=== PATIENT | female | born 1970 | race Caucasian/White ===

== ENCOUNTER 2020-05-26 12:12 | Emergency (ER) | payer BC, SELFPAY ==
[2020-05-26 12:20] VITALS: BP 192/110; PULSE 110; RESP 18; TEMP 36.6; O2SAT 98
--- NOTE | 2020-05-26 12:49 | ED.FEMALEGU ---
HPI - Female Genitourinary General Chief complaint: GLAZIER HELPER Stated complaint: Vaginal Bleeding Time Seen by Provider: 05/26/20 12:49 History of Present Illness HPI Narrative: Heavy vaginal bleeding since yesterday. Seemd better this morning. Then after workout she reports sudden large gush of blood and going through about 1 large tampon per hour. She has never had bleeding this heavy before. She endorses mild light headedness. She has had some abdominal cramping as well, although sounds like it is not new for her. No blood thinners, no other bleeding or bruising. Related Data Home Medications Medication Instructions Recorded Confirmed No Home Medications 05/26/20 05/26/20 Allergies Allergy/AdvReac Type Severity Reaction Status Date / Time aspirin Allergy Other Verified 05/26/20 12:28 Review of Systems Review of Systems: All systems reviewed & are unremarkable except as noted in HPI and below Constitutional: Constitutional: Denies chills Cardiovascular: Cardiovascular: Denies chest pain Respiratory: Respiratory: Denies dyspnea Gastrointestinal: Gastrointestinal: Reports abdominal pain Genitourinary: Genitourinary: Denies hematuria and Denies dysuria Musculoskeletal: Musculoskeletal: Denies back pain [facility] Family History Family History Mother Hypertension Father Family history of coronary artery disease Family history of congestive heart failure, Onset Age: 80 Social History Social History Smoking status: Never smoker Alcohol intake: never Gender identity (if verbalized by the patient): Female Exam Const: General: healthy appearing, no acute distress and alert Orientation/consciousness: patient oriented x3 HENMT: Head: normal to inspection Neck: Neck: normal visual inspection and no lymphadenopathy Chest: Chest palpation & inspection: no tenderness Resp: Effort & Inspection: normal respiratory effort Auscultation: clear to auscultation bilaterally, no rales, no rhonchi and no wheezes Cardio: Jugular venous distension: no JVD Rate: regular rate Rhythm: regular rhythm Heart sounds: no murmurs GI: Inspection: non-distended GI Palp: Yes Soft to palpation and No Tenderness to palpation present (GI) : External Female Exam: normal external appearance Speculum Exam - Vagina: vaginal bleeding (minimal) Speculum Exam - Cervix: normal appearance of the cervix Skin: General skin exam: normal color Neuro: General: patient oriented x3 and moves all extremities Speech: normal speech Extrem: General: no edema Psych: Appearance: well kempt Affect: normal affect Course Vital Signs Vital signs: Vital Signs Temperature 36.6 C 05/26/20 12:20 Pulse Rate 110 H 05/26/20 12:20 Respiratory Rate 18 05/26/20 12:20 Blood Pressure 192/110 H 05/26/20 12:20 Pulse Oximetry 98 05/26/20 12:20 Temperature 36.6 C 05/26/20 12:20 Pulse Rate 103 H 05/26/20 13:27 Respiratory Rate 18 05/26/20 12:20 Blood Pressure 177/91 H 05/26/20 13:27 Pulse Oximetry 98 05/26/20 12:20 MDM - Female Genitourinary MDM Narrative Medical decision making narrative: H/H stable. Minimal bleeding on exam. Case discussed with Dr. Reed. She can follow-up with them in clinic next week. Medical Records Attestation: I reviewed the patient's medical records. Lab Data Attestation: I reviewed the patient's lab results. Result diagrams: 05/26/20 13:26 05/26/20 13:26 Labs: Lab Results 05/26/20 05/26/20 05/26/20 Range/Units 13:26 13:26 13:26 WBC (4.5-10.0) K/mm3 RBC (4.2-5.4) M/mm3 Hgb (12.0-15.0) g/dL Hct (37.0-47.0) % MCV (80-100) fl MCH (26-34) pg MCHC (32-36) g/dl RDW (11.5-14.5) % Plt Count (150-375) k/mm3 MPV (7.4-10.4) fl Immature Gran % (Auto) (0-0.5) % Neut % (Auto) (45.
[2020-05-26 13:27] VITALS: BP 168/107; BP 170/104; BP 177/91; PULSE 103; PULSE 90; PULSE 94
[2020-05-26] MEDS: SODIUM CHLORIDE 0.9% IV 1,000 ML 999 ML IV CONT (13:33)
[2020-05-26 13:41] LABS: Add Urine Microscopic? YES; Appearance Urine Clear (Clear); Bilirubin Urine Negative (Negative); Blood Urine 1+ (Negative); Color Urine Straw (Yellow); Glucose Urine UA Negative (Negative); Ketones Urine Negative (Negative); Leukocyte Esterase Ur Negative LEU/UL (Negative); Mucus Urine Rare /lpf; Nitrate Urine Negative (Negative); Protein Urine Negative (Negative); RBC Urine 0-2 /hpf (0-2); Specific Grav Ur 1.014 (1.001-1.035); Squamous Epithelial Cell Urine Rare /hpf (Few); Urobilinogen Urine Negative mg/dL (<2.0)
[2020-05-26 13:52] LABS: Alanine Aminotransferase 30 U/L (4-35); Albumin Level 3.9 g/dL (3.5-5.1); Alkaline Phosphatase 43 U/L (38-126); Anion Gap 10.5 mmol/L (7-16); Aspartate Amino Transferase 28 U/L (14-36); Bilirubin,Total 0.3 mg/dL (0.2-1.3); Blood Urea Nitrogen 11 mg/dL (7-17); Calcium 8.6 mg/dL (8.4-10.2); Carbon Dioxide 26 mmol/L (22-30); Chloride 105 mmol/L (98-107); Estimated CRCL calculation 103 ml/min; Estimated Glomerular Filt Rate > 60; Glucose 115 mg/dL (65-105); Potassium 3.5 mmol/L (3.4-5.0); Sodium 138 mmol/L (137-145)
[2020-05-26 13:55] LABS: Basophils Absolute Auto 0.1 K/mm3 (0.0-0.1); Basophils Percent Auto 0.7 % (0.2-1.2); Eosinophils Absolute Auto 0.1 K/mm3 (0-0.3); Eosinophils Percent Auto 1.2 % (0-4.4); Hematocrit 34.8 % (37.0-47.0); Hemoglobin 12.5 g/dL (12.0-15.0); Immature Granulocyte Absolute 0.04 K/mm3 (0.00-0.031); Immature Granulocyte Percent A 0.5 % (0-0.5); Lymphocytes Absolute Auto 1.68 K/mm3 (0.9-3.2); Lymphocytes Percent Auto 22.1 % (18.3-44.2); Mean Corpuscular HGB Conc 35.9 g/dl (32-36); Mean Corpuscular Hemoglobin 30.6 pg (26-34); Mean Corpuscular Volume 85.3 fl (80-100); Mean Platelet Volume 8.9 fl (7.4-10.4); Monocytes Absolute Auto 0.7 K/mm3 (0.1-0.6); Monocytes Percent Auto 9.2 % (2.6-8.5); Neutrophils Absolute Auto 5.1 K/mm3 (1.3-6.7); Neutrophils Percent Auto 66.3 % (45.5-73.1); Platelet Count Result 279 k/mm3 (150-375); Red Blood Count 4.08 M/mm3 (4.2-5.4); White Blood Count 7.6 K/mm3 (4.5-10.0)
[2020-05-26 13:57] LABS: INR 1.1; Prothrombin Time 13.9 Seconds (11.1-14.7)
[2020-05-26 13:58] LABS: Partial Thromboplastin Time 25.4 SECONDS (22.3-36.8)
== END 2020-05-26 15:19 | disposition home or self-care (01) ==
PROVIDERS: Emergency Provider Emergency Medicine
DX: N93.9 Abnormal uterine and vaginal bleeding, unspecified (principal)
CPT/HCPCS: 36415; 80053; 81001; 81025; 85025; 85610; 85730; 86850; 86900; 86901; 96360; 99284; J7030

== ENCOUNTER 2020-08-06 02:44 | Outpatient (CLI) | payer BC, SELFPAY ==
[2020-08-06 18:16] LABS: SARS-CoV-2 RNA PCR Negative
== END 2020-08-06 02:45 | disposition home or self-care (01) ==
LOC: ANHCOVIDDT 02:45
PROVIDERS: PCP Family Medicine; Visit Provider Internal Medicine Gastroenterology
DX: Z01.812 Encounter for preprocedural laboratory examination (principal); Z20.828 Contact with and (suspected) exposure to other viral communicable diseases
CPT/HCPCS: 87635; C9803; U0003

== ENCOUNTER 2020-08-08 01:49 | Day surgery (SDC) | payer BC, SELFPAY ==
[2020-08-06 13:40] VITALS: BMI 36.3
[2020-08-08 10:50] VITALS: BP 165/86; PULSE 85; RESP 18; TEMP 37.4; O2SAT 99
[2020-08-08] MEDS: LACTATED RINGERS 1,000 ML 150 ML IV CONT (10:58)
--- NOTE | 2020-08-08 10:59 | WPDANESEPPF ---
Anes - Initial Pre Proc Eval Procedure: Operation Date: 08/08/20 11:30 Proposed Procedures p Esophagogastroduodenoscopy - Mike Gama MD Date/Time: 08/08/20 10:59 Surgeon: Mike Gama MD Pre Op Diagnosis: GERD Patient Data Age: 50 Gender: F Height: 5 ft 6 in Weight: 101.7 kg Last Vital Signs Temp 37.4 C 08/08/20 10:50 Pulse 85 08/08/20 10:50 Resp 18 08/08/20 10:50 BP 165/86 H 08/08/20 10:50 Pulse Ox 99 08/08/20 10:50 Allergies Allergy/AdvReac Type Severity Reaction Status Date / Time aspirin Allergy Mild bleeding Verified 08/08/20 10:48 Home Medications Medication Instructions Recorded Confirmed Type pantoprazole 40 mg PO BID 08/06/20 08/08/20 History Patient hx anesthesia problems: none Family hx anesthesia problems: none PMFSH Past Medical History Medical History GERD (gastroesophageal reflux disease) Family History Family History Mother Hypertension Father Family history of coronary artery disease Family history of congestive heart failure, Onset Age: 80 Social History Social History Smoking status: Never smoker Alcohol intake: current Substance use: never Substance use type: does not use Living arrangements: with family Gender identity (if verbalized by the patient): Female Spiritual care concerns: No Anes - Eval Final PreProcedure Day of Procedure 08/08/20 10:59 Patient weight: obese Heart: regular rate and rhythm Lungs: clear to auscultation Airway: Mallampati scale class II Neurological: alert and oriented Last oral intake: >/= 8 hours ASA classification: II Emergent: no Anesthetic plan: proceed Anesthesia type and monitoring: general GIVS and standard monitoring Informed Consent: The patient's anesthetic plan and its attendant risks and benefits were discussed with the patient/family/POA. Questions were solicited and answers provided to the satisfaction of the patient/family/POA.
--- NOTE | 2020-08-08 11:35 | PM.HPGS ---
History of Present Illness History of Present Illness Consent: Risks, benefits, and alternatives have been discussed and questions answered. Patient agrees to proceed with procedure. Chief complaint: GERD Narrative: Natalee Lopez is a 50 year old female with epigastric pain and heartburn. For 2 years she has had had a constant raw feeling in the epigastric area. She also gets very bloated and distended. She has had acid reflux with burning into her throat but that was relieved when she began taking pantoprazole few months ago. Because of persistent symptoms she was told begin taking the twice a day but still has the constant epigastric burning. She had been using quite a bit of ibuprofen for a neck injury but now takes it only occasionally. She denies dysphagia or weight loss. She does drink through a straw in uses carbonated beverages regularly. Review of Systems Review of Systems: All systems reviewed & are unremarkable except as noted in HPI and below PMFSH Past Medical History Medical History GERD (gastroesophageal reflux disease) Family History Family History Mother Hypertension Father Family history of coronary artery disease Family history of congestive heart failure, Onset Age: 80 Social History Social History Smoking status: Never smoker Alcohol intake: current Substance use: never Substance use type: does not use Living arrangements: with family Gender identity (if verbalized by the patient): Female Spiritual care concerns: No Meds Home Medications and Allergies Home Medications Medication Instructions Recorded Confirmed Type pantoprazole 40 mg PO BID 08/06/20 08/08/20 History Allergies Allergy/AdvReac Type Severity Reaction Status Date / Time aspirin Allergy Mild bleeding Verified 08/08/20 10:48 Vital Signs Vital Signs - 24 hr 08/08/20 10:50 Temperature 37.4 C Pulse Rate 85 Respiratory Rate 18 Blood Pressure 165/86 H Pulse Oximetry 99 Exam Const: General: alert Orientation/consciousness: patient oriented x3 Resp: Auscultation: clear to auscultation bilaterally Cardio: Rhythm: regular rhythm GI: GI Palp: Yes Soft to palpation and No Tenderness to palpation present (GI) Neuro: General: patient oriented x3 Assessment and Plan Assessment and plan (1) Epigastric pain: Code(s): R10.13 - Epigastric pain Status: Acute Assessment and Plan: EGD with possible biopsy or dilatation or cautery.
[2020-08-08] MEDS: BENZOCAINE (*SP) 60 ML SPRAY CAN (HURRICAINE) 1 SPRAY MUCOUS MEM (11:46)
[2020-08-08 12:00] VITALS: BP 147/93; PULSE 98; RESP 25; O2SAT 99
[2020-08-08 12:10] VITALS: BP 159/90; PULSE 82; RESP 16; O2SAT 99
[2020-08-08 12:20] VITALS: BP 154/80; PULSE 78; RESP 17; O2SAT 100
== END 2020-08-08 12:39 | disposition home or self-care (01) ==
PROVIDERS: PCP Family Medicine; Visit Provider Internal Medicine Gastroenterology
PROC: 0DJ08ZZ Inspection of Upper Intestinal Tract, Via Natural or Artificial Opening Endoscopic (ICD-10-PCS; CPT 43235; principal; 2020-08-08 11:30)
DX: K21.00 Gastro-esophageal reflux disease with esophagitis, without bleeding (principal); K29.70 Gastritis, unspecified, without bleeding; K29.50 Unspecified chronic gastritis without bleeding; E66.9 Obesity, unspecified; Z68.36 Body mass index [BMI] 36.0-36.9, adult
CPT/HCPCS: 43239; 88305; 88342; J2001; J2704; J7120

== ENCOUNTER 2021-12-17 01:06 | Emergency (ER) | payer BC, SELFPAY ==
--- NOTE | ~2021-12-17 | CT_ITS ---
EXAMINATION: CT abdomen pelvis w con EXAM DATE: 12/17/2021 03:12 INDICATION: Upper Abd Pain X 10 Hrs. Radiates To Back. N/v. TECHNIQUE: Spiral CT of the abdomen and pelvis was performed following intravenous injection of 100 m L Omnipaque 350. Axial, coronal and sagittal images of the abdomen and pelvis were reviewed. The do se-length product (DLP) for this examination was 1021.17 mGy-cm. The exposure was tailored according to patient size (auto mA exposure control), and iterative reconstruction (ASIR) was used as addition al dose reduction technique. There is no prior study for comparison. FINDINGS: There is hepatic steatosis without suspicious focal lesion identified. Spleen, adrenal glan ds, pancreas are unremarkable. Gallbladder is unremarkable. No biliary obstruction. Portal and spl enic veins are patent. Kidneys enhance symmetrically. There is no hydronephrosis. The uterus is u nremarkable. The bladder is unremarkable. There is no retroperitoneal or pelvic lymphadenopathy. The appendix is normal. The stomach and small bowel are unremarkable. There is expected amount of c olonic stool. No free intraperitoneal gas. The heart is normal in size. There are no pericardial or pleural effusions. The lung bases are unremarkable. The bones are unremarkable. IMPRESSION: 1. Hepatic steatosis. 2. No acute findings. Reviewed, dictated and finalized at location A. ECT DEVELOPMENT ENGINEER
[2021-12-17 01:15] VITALS: BP 132/79; PULSE 100; RESP 18; TEMP 35.9; O2SAT 99
[2021-12-17 02:30] VITALS: BP 112/74; PULSE 106; RESP 20; TEMP 36.1
[2021-12-17 02:31] LABS: Basophils Percent Auto 0.2 % (0.2-1.2); Eosinophils Percent Auto 0.2 % (0-4.4); Hematocrit 39.7 % (37.0-47.0); Hemoglobin 14.1 g/dL (12.0-15.0); Immature Granulocyte Absolute 0.03 K/mm3 (0.00-0.031); Immature Granulocyte Percent A 0.3 % (0-0.5); Lymphocytes Absolute Auto 0.23 K/mm3 (0.9-3.2); Lymphocytes Percent Auto 2.5 % (18.3-44.2); Mean Corpuscular HGB Conc 35.5 g/dl (32-36); Mean Corpuscular Volume 90.2 fl (80-100); Mean Platelet Volume 8.6 fl (7.4-10.4); Monocytes Absolute Auto 0.6 K/mm3 (0.1-0.6); Monocytes Percent Auto 6.2 % (2.6-8.5); Neutrophils Absolute Auto 8.5 K/mm3 (1.3-6.7); Neutrophils Percent Auto 90.6 % (45.5-73.1); Platelet Count Result 222 k/mm3 (150-375); Red Cell Distribution Width 12.1 % (11.5-14.5); White Blood Count 9.3 K/mm3 (4.5-10.0)
--- NOTE | 2021-12-17 02:31 | ECG_ITS ---
Measurements Intervals [place] Rate: 104 P: 32 WA: 140 QRS: -2 QRSD: 86 T: 18 QT: 348 QTc: 459 Interpretive Statements SINUS TACHYCARDIA CONSIDER ANTERIOR INFARCT, AGE INDETERMINATE INFERIOR INFARCT, AGE INDETERMINATE BASELINE ARTIFACT- II, III, AVR, AVF ABNORMAL ECG Electronically Signed On 12-17-2021 6:20:28 VENDING MACHINE MECHANIC by Cj De La Cruz D.O.
--- NOTE | 2021-12-17 02:41 | ED.ABDPAIN ---
HPI - Abdominal Pain General Chief Complaint: Abdominal Pain Stated Complaint: vomiting and abd pain Time Seen by Provider: 12/17/21 02:30 Source: patient Mode of arrival: ambulatory Limitations: no limitations History of Present Illness HPI narrative: Patient is a 51-year-old female complaining of epigastric pain, burning, 8 out of 10, radiating to back accompanied by nausea and vomiting that started this afternoon. Patient denies any chest pain, shortness of breath, diarrhea, fever, chills, or urinary symptoms. Related Data Home Medications Medication Instructions Recorded Confirmed pantoprazole 40 mg PO BID 08/06/20 08/08/20 Allergies Allergy/AdvReac Type Severity Reaction Status Date / Time aspirin Allergy Mild bleeding Verified 12/17/21 04:46 Review of Systems Review of Systems: All systems reviewed & are unremarkable except as noted in HPI and below Constitutional: Constitutional: Denies body ache(s), Denies chills, Denies excessive sweating, Denies fatigue, Denies fever(s), Denies headache(s), Denies lethargy, Denies malaise, Denies weakness and Denies weight loss Eyes: Eyes: Denies blurry vision, Denies change in vision and Denies loss of vision ENT: Denies dizziness, Denies ear discharge, Denies headache(s), Denies lip swelling, Denies epistaxis, Denies nasal congestion, Denies neck pain, Denies throat swelling and Denies tongue swelling Cardiovascular: Cardiovascular: Denies chest pain, Denies chest pain at rest, Denies chest pain with activity, Denies diaphoresis, Denies rapid heart rate, Denies edema, Denies irregular heart rhythm, Denies lightheadedness, Denies palpitations, Denies dyspnea and Denies dyspnea on exertion Respiratory: Respiratory: Denies chest congestion, Denies cough, Denies hemoptysis, Denies dyspnea and Denies dyspnea on exertion Gastrointestinal: Gastrointestinal: Denies melena, Denies hematochezia and Denies hematemesis Musculoskeletal: Musculoskeletal: Denies abnormal gait, Denies deformity, Denies joint swelling, Denies limited range of motion, Denies neck pain and Denies numbness Neurologic: Denies Abnormal speech present, Denies abnormal gait, Denies confusion, Denies dizziness, Denies headache(s), Denies focal weakness, Denies loss of vision, Denies numbness, Denies Other visual disturbances, Denies Sensory deficit (Neuro) and Denies weakness Psychiatric: Psychiatric: Denies confusion, Denies depression, Denies auditory hallucinations, Denies homicidal ideation and Denies suicidal ideation Endocrine: Endocrine: Denies cold intolerance, Denies excessive sweating, Denies fatigue, Denies heat intolerance and Denies palpitations Hematologic/Lymphatic: Hematologic/Lymphatic: Denies easy bleeding and Denies easy bruising Allergic/Immunologic: Allergic/Immunologic: Denies lip swelling, Denies throat swelling and Denies tongue swelling PMFSH Past Medical History Medical History GERD (gastroesophageal reflux disease) Family History Family History Mother Hypertension Father Family history of coronary artery disease Family history of congestive heart failure, Onset Age: 80 Social History Social History Smoking status: Never smoker Alcohol intake: current Substance use: never Substance use type: does not use Gender identity (if verbalized by the patient): Female Spiritual care concerns: No Exam Const: General: cooperative, healthy appearing, comfortable, no acute distress, well developed, alert and awake; No confusion Orientation/consciousness: oriented to person, oriented to place, oriented to time, patient oriented x3 and No confusion Limitations: no limitations HENMT: Head: normal to inspection, normocephalic and atraumatic Ears: hearing grossly normal bilaterally, TM normal on the righ
[2021-12-17 02:42] LABS: Alanine Aminotransferase 345 U/L (4-35); Albumin Level 4.4 g/dL (3.5-5.1); Alkaline Phosphatase 54 U/L (38-126); Anion Gap 11 mmol/L (8-16); Aspartate Amino Transferase 474 U/L (14-36); Bilirubin,Total 2.2 mg/dL (0.2-1.3); Blood Urea Nitrogen 17 mg/dL (7-17); Carbon Dioxide 25 mmol/L (22-30); Chloride 102 mmol/L (98-107); Estimated CRCL calculation 87 ml/min; Estimated Glomerular Filt Rate > 60; Glucose 144 mg/dL (65-110); Lipase 61 U/L (23-300); Potassium 3.6 mmol/L (3.4-5.0); Sodium 138 mmol/L (137-145)
[2021-12-17] MEDS: PANTOPRAZOLE SODIUM IV 40 MG VIAL IV PUSH (02:50)
[2021-12-17] MEDS: ONDANSETRON INJ 4 MG/2 ML VIAL IV PUSH (02:51)
[2021-12-17] MEDS: MORPHINE SULFATE (*CRX) 2 MG/ML INJ IV PUSH ×2 (02:51→05:16)
[2021-12-17 03:18] LABS: INR 1.1; Prothrombin Time 13.4 Seconds (11.1-14.7)
[2021-12-17 03:19] LABS: Partial Thromboplastin Time 23.5 SECONDS (22.3-36.8)
[2021-12-17 03:55] LABS: Add Urine Microscopic? NO; Appearance Urine Clear (Clear); Bilirubin Urine Negative (Negative); Blood Urine Negative (Negative); Color Urine Yellow (Yellow); Glucose Urine UA Negative (Negative); Ketones Urine Negative (Negative); Leukocyte Esterase Ur Negative LEU/UL (Negative); Mucus Urine Few /lpf; Nitrate Urine Negative (Negative); Protein Urine Negative (Negative); Squamous Epithelial Cell Urine Many /hpf (Few); Urobilinogen Urine Negative mg/dL (<2.0)
[2021-12-17 04:10] LABS: Troponin I < 0.012 ng/mL (0.000-0.034)
[2021-12-17 04:13] VITALS: BP 136/83; PULSE 102; RESP 18; O2SAT 97
[2021-12-17 05:15] VITALS: BP 98/72; PULSE 106; RESP 18; O2SAT 100
[2021-12-17] MEDS: LACTATED RINGERS 1,000 ML 999 ML IV CONT (05:37)
[2021-12-17 06:45] LABS: Reflex Lactic Acid Yes or No Add Lactic
[2021-12-17 06:51] VITALS: BP 119/71; PULSE 88; RESP 18; O2SAT 98
== END 2021-12-17 07:03 | disposition home or self-care (01) ==
PROVIDERS: Emergency Provider Emergency Medicine; PCP Family Medicine
DX: K29.00 Acute gastritis without bleeding (principal); R00.0 Tachycardia, unspecified; R94.31 Abnormal electrocardiogram [ECG] [EKG]
CPT/HCPCS: 36415; 74177; 80053; 81003; 81025; 83605; 83690; 84484; 85025; 85610; 85730; 93005; 96361; 96374; 96375; 96376; 99284; C9113; J2270; J2405; J7120; Q9967

== ENCOUNTER 2022-10-27 15:49 | Emergency (ER) | payer BC, SELFPAY ==
[2022-10-27] VITALS (12 sets, daily range): BP systolic 136–148; BP diastolic 72–89; PULSE 94–110; RESP 16–20; TEMP 36.7–36.8; O2SAT 96–100
--- NOTE | ~2022-10-27 | CT_ITS ---
EXAMINATION: CT abdomen pelvis w con DATE: 10/27/2022 20:50 INDICATION: abd pain TECHNIQUE: Computed tomography (CT) of the abdomen and pelvis was performed with 100 mL Omnipaque-350 intravenous contrast. Automated exposure control and iterative reconstruction technique were employe d. The dose-length product was 1153.24 mGy-cm. COMPARISON: 12/17/2021. FINDINGS: Lower thorax: Unremarkable Liver: Hepatomegaly. Diffuse fatty deposition. Biliary/Gallbladder: Gallbladder is normal. No bile duct dilation. Pancreas: No mass or duct dilation. Spleen: Normal. Adrenals:No mass. Kidneys: No mass, stone, or hydronephrosis. GI tract: Distal esophageal and gastric wall edema. No small or large bowel dilation. Normal appendix . Mesentery/Peritoneum: No ascites, mass, or free air. Retroperitoneum: No mass. Pelvis: Pelvic organs are within normal limits. Soft Tissues: Soft tissues and body wall unremarkable. Bones: No acute osseous finding. IMPRESSION: No acute abdominopelvic process detected. Hepatomegaly and steatosis. Reviewed, dictated and finalized at location K. LLOFACIAL PATHOLOGY
--- NOTE | 2022-10-27 16:15 | ECG_ITS ---
Measurements Intervals [place] Rate: 109 P: 9 GA: 136 QRS: -24 QRSD: 85 T: 10 QT: 338 QTc: 457 Interpretive Statements SINUS TACHYCARDIA CONSIDER ANTERIOR INFARCT, AGE INDETERMINATE CONSIDER INFERIOR INFARCT, AGE INDETERMINATE ABNORMAL ECG COMPARED TO ECG 12/17/2021 02:40:37 NO SIGNIFICANT CHANGES Electronically Signed On 10-27-2022 18:38:19 PROBATION AND PAROLE OFFICER by Cj De La Cruz D.O.
[2022-10-27 16:59] LABS: Basophils Percent Auto 0.3 % (0.2-1.2); Eosinophils Absolute Auto 0.1 K/mm3 (0-0.3); Eosinophils Percent Auto 0.8 % (0-4.4); Hematocrit 38.1 % (37.0-47.0); Immature Granulocyte Absolute 0.02 K/mm3 (0.00-0.031); Immature Granulocyte Percent A 0.3 % (0-0.5); Lymphocytes Absolute Auto 0.44 K/mm3 (0.9-3.2); Lymphocytes Percent Auto 6.2 % (18.3-44.2); Mean Corpuscular HGB Conc 34.1 g/dl (32-36); Mean Corpuscular Hemoglobin 30.8 pg (26-34); Mean Corpuscular Volume 90.3 fl (80-100); Mean Platelet Volume 8.6 fl (7.4-10.4); Monocytes Absolute Auto 0.5 K/mm3 (0.1-0.6); Monocytes Percent Auto 6.7 % (2.6-8.5); Neutrophils Absolute Auto 6.1 K/mm3 (1.3-6.7); Neutrophils Percent Auto 85.7 % (45.5-73.1); Platelet Count Result 211 k/mm3 (150-375); Red Blood Count 4.22 M/mm3 (4.2-5.4); Red Cell Distribution Width 12.3 % (11.5-14.5); White Blood Count 7.1 K/mm3 (4.5-10.0)
[2022-10-27 17:17] LABS: Alanine Aminotransferase 151 U/L (6-35); Albumin Level 4.6 g/dL (3.5-5.1); Alkaline Phosphatase 37 U/L (38-126); Anion Gap 10 mmol/L (8-16); Aspartate Amino Transferase 126 U/L (14-36); Bilirubin,Total 1.2 mg/dL (0.2-1.3); Blood Urea Nitrogen 14 mg/dL (7-17); Calcium 8.5 mg/dL (8.4-10.2); Carbon Dioxide 28 mmol/L (22-30); Chloride 100 mmol/L (98-107); Estimated CRCL calculation 99 ml/min; Estimated Glomerular Filt Rate > 60; Glucose 115 mg/dL (65-110); Lipase 67 U/L (23-300); Potassium 4.1 mmol/L (3.4-5.0); Sodium 138 mmol/L (137-145)
[2022-10-27 18:37] LABS: Add Urine Microscopic? YES; Appearance Urine Clear (Clear); Bilirubin Urine Negative (Negative); Blood Urine Negative (Negative); Color Urine Yellow (Yellow); Glucose Urine UA Negative (Negative); Ketones Urine Negative (Negative); Leukocyte Esterase Ur Trace LEU/UL (Negative); Nitrate Urine Negative (Negative); Protein Urine Negative (Negative); Urobilinogen Urine 0.2 mg/dL (<2.0); pH Urine 6.5 (5.0-9.0)
[2022-10-27 18:43] LABS: Mucus Urine Rare /lpf; Squamous Epithelial Cell Urine Rare /hpf (Few); WBC Urine 0-3 /hpf
--- NOTE | 2022-10-27 20:14 | ED.ABDPAIN ---
HPI - Abdominal Pain General Chief Complaint: Abdominal Pain Stated Complaint: abd pain Time Seen by Provider: 10/27/22 20:10 Source: RN notes reviewed History of Present Illness HPI narrative: Patient presents f to emergency department from home for abdominal pain. Patient states symptoms began at approximately 530 this morning. The pain is located across the upper abdomen described as sharp and stabbing in nature. States the pain does not radiate. She denies any fevers or chills she denies any chest pain or shortness of breath denies any nausea vomiting diarrhea or any other symptoms states she has not taken anything for the symptoms Related Data Home Medications Medication Instructions Recorded Confirmed pantoprazole 40 mg tablet,delayed 40 mg PO BID 08/06/20 02/03/22 release dicyclomine 20 mg tablet 20 mg PO .prn 02/03/22 02/03/22 Allergies Allergy/AdvReac Type Severity Reaction Status Date / Time No Known Allergies Allergy Unverified 10/27/22 21:28 Review of Systems Review of Systems: Gen.: Denies fevers or chills ENT: Denies congestion Respiratory: Denies shortness of breath or cough CV: Denies chest pain or palpitations GI: See HPI denies burning, urgency, frequency or hematuria Musculoskeletal: Denies back pain or muscle pain Neuro: Denies numbness, tingling, weakness or focal weakness Skin: Denies rash Except as documented, all other systems reviewed and negative [facility] Past Medical History Medical History Abdominal bloating Elevated liver enzymes GERD (gastroesophageal reflux disease) Hepatic steatosis Surgical History Surgical History (Updated 02/03/22 @ 11:21 by Marlene Yu MA) H/O abdominoplasty H/O esophagogastroduodenoscopy History of cholecystectomy Family History Family History Mother Hypertension Father Family history of coronary artery disease Family history of congestive heart failure, Onset Age: 80 Social History Social History Smoking status: Never smoker Alcohol intake: current Substance use: never Substance use type: does not use Gender identity (if verbalized by the patient): Female Spiritual care concerns: No Exam Narrative: APPEARANCE: No acute distress, nontoxic, resting in bed HEENT: Normocephalic, atraumatic, OMM RESPIRATORY: No respiratory distress, clear to auscultation bilaterally with no rhonchi wheezing or rales CARDIOVASCULAR: RRR s murmur ABDOMINAL: Soft nondistended tender palpation epigastric, right upper quadrant and left upper quadrant no tenderness in right lower quadrant and left lower quad no rebound or guarding MUSCULOSKELETAl: Moves all extremities. No clubbing, cyanosis or edema. NEURO: Awake and alert. Following commands, speech normal, no focal deficits SKIN:: Warm, dry. Normal Color PSYCHIATRIC: Normal affect/mood Course Course Emergency Course: Discussed with patient states that she does have a history of seen GI before in the past states that she had had a EGD in 2018 which showed some gastritis and she was placed on PPI at that time and she is taking. States she has not seen GI since that time Patient states abdominal pain is improved with GI cocktail Patient states that they are feeling much better at this time. States abdominal pain has improved. Repeat abdominal exam shows the patient's abdomen to be soft with no surgical abdomen present discussed with patient results of workup and diagnosis. Discussed need for follow-up with primary care physician, reasons to return to the emergency department in proper use of medication. Patient understands and agrees to current treatment plan Vital Signs Vital signs: Vital Signs Temperature 98.2 F 10/27/22 16:11 Pulse Rate 103 H 10/27/22 16:11 Respiratory Rate 16 10/27/22 16:11 Bl
[2022-10-27] MEDS: FAMOTIDINE 20 MG/2 ML VIAL IV PUSH (20:25)
[2022-10-27] MEDS: SODIUM CHLORIDE 0.9% IV 1,000 ML 999 ML IV CONT (20:26)
== END 2022-10-27 22:20 | disposition home or self-care (01) ==
PROVIDERS: Emergency Medicine; Emergency Provider Emergency Medicine; PCP Family Medicine
DX: R10.13 Epigastric pain (principal); K21.9 Gastro-esophageal reflux disease without esophagitis; K76.0 Fatty (change of) liver, not elsewhere classified
CPT/HCPCS: 36415; 74177; 80053; 81001; 81025; 83690; 85025; 93005; 96361; 96365; 96375; 99284; A9270; J0131; J7030; Q9967

== ENCOUNTER 2022-10-27 22:44 | Inpatient (IN) | payer BC, SELFPAY ==
--- NOTE | ~2022-10-27 | XR_ITS ---
XR ERCP 10/30/2022 14:13 Gallstones. TECHNIQUE: Fluoroscopy used during ERCP performed by [Mike Gama MD] on 10/30/2022. 77 se conds of fluoroscopy with 3 images captured. ] FINDINGS: Correlate with procedure note. IMPRESSION: Fluoroscopy used during ERCP. Please correlate with procedural report. Reviewed, dictated and finalized at location A. WRITER IMPRESSION: Fluoroscopy used during ERCP. Please correlate with procedural repo rt.
--- NOTE | ~2022-10-27 | MR_ITS ---
EXAMINATION: MR MRCP wo/w con/w 3D wo ind DATE: 10/29/2022 13:02 INDICATION: Choledocholithiasis. TECHNIQUE: Magnetic resonance imaging (MRI) of the abdomen was performed without and with 20 mL Multi Teresa intravenous contrast. Sequences included coronal T2-weighted FS FSE, coronal T2-weighted FSE, a xial T1-weighted LAVA, coronal FS FIESTA, axial dual-echo T1-weighted SPGR, coronal lava-FLEX, sagitt al T2-weighted FSE, axial T2-weighted FSE, and axial DWI. Thick-slab T2-weighted FSE images were obta ined for magnetic resonance cholangiopancreatography (MRCP). Maximum intensity projection 3-D reconst ructions of the volumetric data were created by the technologist. Postcontrast sequences included cor onal LAVA-flex and time course of axial T1-weighted LAVA. COMPARISON: CT abdomen and pelvis 10/27/22 FINDINGS: ABDOMEN MRI: There is diffuse hepatic steatosis. There is mild intrahepatic biliary duct dilatation. The spleen, pancreas, adrenal glands, and kidneys are normal. There are no pathologically enlarged ly mph nodes. There is no free intraperitoneal fluid. There are no dilated loops of bowel. ABDOMEN MRCP: The common hepatic duct measures 13 mm . The common bile duct measures 10 mm with dannielle l distal tapering. No choledocholithiasis. IMPRESSION: 1. Mild intrahepatic and extrahepatic biliary duct dilatation, likely secondary to cholecystectomy. N o choledocholithiasis. Reviewed, dictated and finalized at location A. GER OF INTERNAL AUDIT IMPRESSION: 1. Mild intrahepatic and extrahepatic biliary duct dilatation, likely secondary to cholecystectomy. No choledocholithiasis.
--- NOTE | ~2022-10-27 | US_ITS ---
Limited Abdominal Sonogram: Real-time sonographic imaging of the right upper quadrant was performed. Clinical History: Abdominal pain, abnormal LFTs Findings: The liver appears echogenic, with no evidence of mass lesion or bile duct dilatation. Live r measures 20.1 cm in length. Main portal vein demonstrates normal direction of flow. The gallbladder is absent, compatible prior cholecystectomy. The common bile duct measures 14 mm. The visualized pa ncreas, aorta, and IVC are unremarkable. Impression: Diffuse fatty infiltration of the liver with associated hepatomegaly. Dilated common bile duct, possibly related to prior cholecystectomy. Reviewed, dictated and finalized at location M. ORATE QUALITY MANAGER Impression: Diffuse fatty infiltration of the liver with associated hepatomegaly. Dilated common bile duct, possibly related to prior cholecystectomy.
[2022-10-27 22:45] VITALS: BP 146/86; PULSE 99; RESP 16; TEMP 36.6; O2SAT 98
[2022-10-28 04:15] LABS: Basophils Percent Auto 0.4 % (0.2-1.2); Eosinophils Absolute Auto 0.1 K/mm3 (0-0.3); Eosinophils Percent Auto 1.4 % (0-4.4); Hematocrit 35.3 % (37.0-47.0); Hemoglobin 12.3 g/dL (12.0-15.0); Immature Granulocyte Absolute 0.02 K/mm3 (0.00-0.031); Immature Granulocyte Percent A 0.4 % (0-0.5); Lymphocytes Absolute Auto 0.81 K/mm3 (0.9-3.2); Lymphocytes Percent Auto 15.9 % (18.3-44.2); Mean Corpuscular HGB Conc 34.8 g/dl (32-36); Mean Corpuscular Hemoglobin 31.4 pg (26-34); Mean Corpuscular Volume 90.1 fl (80-100); Mean Platelet Volume 8.7 fl (7.4-10.4); Monocytes Absolute Auto 0.5 K/mm3 (0.1-0.6); Monocytes Percent Auto 10.4 % (2.6-8.5); Neutrophils Absolute Auto 3.6 K/mm3 (1.3-6.7); Neutrophils Percent Auto 71.5 % (45.5-73.1); Platelet Count Result 186 k/mm3 (150-375); Red Blood Count 3.92 M/mm3 (4.2-5.4); Red Cell Distribution Width 12.3 % (11.5-14.5); White Blood Count 5.1 K/mm3 (4.5-10.0)
--- NOTE | 2022-10-28 04:18 | ED.GENADULT ---
HPI - General Adult General Chief complaint: Abdominal Pain Stated complaint: abdominal pain Time Seen by Provider: 10/28/22 02:59 Source: RN notes reviewed History of Present Illness HPI narrative: Who presents emergency department from home for abdominal pain. Patient states abdominal pain is across the upper abdomen is described as sharp and stabbing in nature does not radiate denies any pain in the lower abdomen states it does make her feel mildly short of breath she denies any fevers or chills or chest pain. The patient was seen here earlier today by myself she had a CT scan lab results at that time were normal she given a GI cocktail with improvement and had been discharged she states that she got out of her car began to leave when the pain had returned and then she returned back to the emergency department to check her self back in Related Data Home Medications Medication Instructions Recorded Confirmed pantoprazole 40 mg tablet,delayed 40 mg PO BID 08/06/20 02/03/22 release dicyclomine 20 mg tablet 20 mg PO .prn 02/03/22 02/03/22 Allergies Allergy/AdvReac Type Severity Reaction Status Date / Time No Known Allergies Allergy Verified 10/27/22 22:48 Review of Systems Review of Systems: Gen.: Denies fevers or chills ENT: Denies congestion Respiratory: Reports mild shortness CV: Denies chest pain or palpitations GI: See HPI Musculoskeletal: Denies back pain or muscle pain Neuro: Denies numbness, tingling, weakness or focal weakness Skin: Denies rash Except as documented, all other systems reviewed and negative PMFSH Past Medical History Medical History Abdominal bloating Elevated liver enzymes GERD (gastroesophageal reflux disease) Hepatic steatosis Surgical History Surgical History (Updated 02/03/22 @ 11:21 by Marlene Yu MA) H/O abdominoplasty H/O esophagogastroduodenoscopy History of cholecystectomy Family History Family History Mother Hypertension Father Family history of coronary artery disease Family history of congestive heart failure, Onset Age: 80 Social History Social History Smoking status: Never smoker Alcohol intake: current Substance use: never Substance use type: does not use Gender identity (if verbalized by the patient): Female Spiritual care concerns: No Exam Narrative: APPEARANCE: No acute distress, nontoxic, resting in bed HEENT: Normocephalic, atraumatic, OMM RESPIRATORY: No respiratory distress, clear to auscultation bilaterally with no rhonchi wheezing or rales CARDIOVASCULAR: RRR s murmur ABDOMINAL: Soft nondistended tender palpation epigastric and right upper quadrant left upper quadrant no tenderness in right lower quadrant left lower quadrant no rebound or guarding MUSCULOSKELETAl: Moves all extremities. No clubbing, cyanosis or edema. NEURO: Awake and alert. Following commands, speech normal, no focal deficits SKIN:: Warm, dry. Normal Color PSYCHIATRIC: Normal affect/mood Course Course Emergency Course: Patient was seen by myself I did review the CT and lab results Patient given morphine with some improvement of pain now pain is returning will admit for intractable pain at this time Discussed with Dr. Orosco presentation work-up agrees with admission agrees with plan for GI consult in a.m. Discussed with patient and family results of workup and diagnosis. Discussed need for admission. Patient and family understand and agree to current treatment plan Vital Signs Vital signs: Vital Signs Temperature 97.9 F 10/27/22 22:45 Pulse Rate 99 10/27/22 22:45 Respiratory Rate 16 10/27/22 22:45 Blood Pressure 146/86 H 10/27/22 22:45 Pulse Oximetry 98 10/27/22 22:45 Oxygen Delivery Room Air 10/27/22 22:45 Temperature 97.9 F 10/27/22 22:45
[2022-10-28 04:24] LABS: Alanine Aminotransferase 132 U/L (6-35); Albumin Level 4.3 g/dL (3.5-5.1); Alkaline Phosphatase 41 U/L (38-126); Anion Gap 7 mmol/L (8-16); Aspartate Amino Transferase 97 U/L (14-36); Blood Urea Nitrogen 13 mg/dL (7-17); Calcium 7.9 mg/dL (8.4-10.2); Carbon Dioxide 28 mmol/L (22-30); Chloride 100 mmol/L (98-107); Estimated CRCL calculation 87 ml/min; Estimated Glomerular Filt Rate > 60; Glucose 106 mg/dL (65-110); Lipase 36 U/L (23-300); Potassium 3.2 mmol/L (3.4-5.0); Sodium 135 mmol/L (137-145)
[2022-10-28] MEDS: MORPHINE SULFATE (*CRX) 4 MG/ML INJ IV PUSH ×5 (04:51→21:27)
[2022-10-28 05:09] LABS: Troponin I < 0.012 ng/mL (0.000-0.034)
[2022-10-28] MEDS: POTASSIUM CHLORIDE 20 MEQ TABLET PO (06:17)
[2022-10-28] MEDS: SODIUM CHLORIDE 0.9% IV 1,000 ML 125 ML IV CONT ×3 (06:36→21:30)
[2022-10-28] MEDS: MORPHINE SULFATE (*CRX) 2 MG/ML INJ IV PUSH (06:57)
[2022-10-28 06:59] LABS: Influenza A QL RT-PCR Negative (Negative); Influenza B QL RT-PCR Negative (Negative); SARS-CoV-2 RNA PCR Negative
[2022-10-28 07:21] VITALS: BP 155/86; PULSE 85; RESP 12; O2SAT 95
[2022-10-28] MEDS: PANTOPRAZOLE SODIUM IV 40 MG VIAL IV PUSH (08:24)
[2022-10-28 09:05] VITALS: BP 139/87; PULSE 86; RESP 12; O2SAT 97
--- NOTE | 2022-10-28 09:45 | PC.NURSE ---
This patient, Natalee Lopez, was admitted to [facility] Surg Room 314-01. Patient/family oriented to hospital policies and general routines including ID bracelet, bed and alarms, visiting hours, pain management, procedures, bathroom and other care routines, personal items, smoking policy, room service/diet, and visiting hours. Information on how to activate the Rapid Response Team has been discussed. Patient/Family are encouraged to report perceived risks to care and to ask questions if they do not understand what they are told or what they should do.
[2022-10-28 09:52] VITALS: BMI 38.2
[2022-10-28 10:00] VITALS: BP 135/75; PULSE 82; RESP 16; TEMP 36.4; O2SAT 94
--- NOTE | 2022-10-28 10:37 | PM.IMHP ---
H&P: HPI History of Present Illness Date/Time: 10/28/22 10:37 Chief Complaint: 52-year-old female with past medical history significant for GERD, hepatic steatosis and cholecystectomy is presenting with abdominal pain that is sharp and stabbing in nature in her epigastric area. She denies fevers or chills. No nausea, vomiting or diarrhea. No chest pain or shortness of breath. No sick contacts or recent travel. In the ER, she was found to have elevated LFTs with a negative hepatitis panel. She was flu and COVID negative. CT scan was ordered and was essentially normal other than showing hepatic steatosis. A GI cocktail was given and seems to resolve her symptoms. She was discharged from the ER when she got to the parking lot her abdominal pain recurred. At that time, she was admitted and made NPO, IV fluids, ppi with a GI consult. Patient states she has had abdominal pain for a couple years. She has been seen by GI on outpatient basis where several years ago she had an NSAID induced ulceration was placed on Protonix. She states ever since then, all of her heartburn symptoms have been resolved. She also has discontinued NSAID use. She does have heavy alcohol use with more than 10 drinks per week. She tends to do shots with dinner several nights a week. She did have an endometrial ablation in 2019 before [facility], prior to that she had had severe abdominal pain and menorrhagia. She also had a tummy tuck in 2017. Since then, she states she has had intermittent upper abdominal pain. It is not associated with nausea or emesis. It does not seem to be associated with food intake or positional changes. Review of Systems Review of Systems: 12 point review of systems was assessed and was negative except as noted in the HPI [facility] Past Medical History Medical History Abdominal bloating Constipation by delayed colonic transit Elevated liver enzymes GERD (gastroesophageal reflux disease) Hepatic steatosis Hypertension Surgical History Surgical History H/O abdominoplasty H/O esophagogastroduodenoscopy History of cholecystectomy Family History Family History Mother Hypertension Diabetes mellitus Father Family history of coronary artery disease Family history of congestive heart failure, Onset Age: 80 Diabetes mellitus Grandparent Colon cancer Social History Social History Smoking status: Never smoker Alcohol intake: current Drinks per week: 4 Substance use: never Substance use type: does not use Lack of Transportation: No Lack of Food: Never True Current Housing: I Have Housing Concerned About Future Housing: No Difficulty Paying Gas/Electric Bills: No Difficulty Paying for Meds: No Currently Unemployed: No Education: Associate Degree Difficulty w/ Childcare or Family Care: No Gender identity (if verbalized by the patient): Female Spiritual care concerns: No Meds Home Medications and Allergies Home Medications Medication Instructions Recorded Confirmed Type pantoprazole 40 mg tablet,delayed 40 mg PO DAILY 08/06/20 10/28/22 History release ferrous sulfate 325 mg (65 mg 325 mg PO DAILY 10/28/22 10/28/22 History iron) tablet losartan 100 1 tablet PO DAILY 10/28/22 10/28/22 History mg-hydrochlorothiazide 25 mg tablet Allergies Allergy/AdvReac Type Severity Reaction Status Date / Time No Known Allergies Allergy Verified 10/28/22 10:15 Vital Signs Vital Signs - 24 hr 10/27/22 22:45 10/28/22 07:21 10/28/22 09:05 Temperature 97.9 F Pulse Rate 99 85 86 Respiratory Rate 16 12 12 Blood Pressure 146/86 H 155/86 H 139/87 Pulse Oximetry 98 95 97 Oxygen Delivery Room Air 10/28/22 10:00 Temperature 97.5 F L Pulse Rate 82 Respir
--- NOTE | 2022-10-28 12:29 | WPDGICN ---
Assessment and Plan Assessment and plan (1) Intractable abdominal pain: Code(s): R10.9 - Unspecified abdominal pain Status: Acute Assessment and Plan: Her symptoms suggest biliary colic. The liver enzyme elevation is supportive of that. Lipase however is normal as is the bilirubin. Ultrasound has been scheduled for today. We may want to consider MRCP (2) Hepatic steatosis: Code(s): K76.0 - Fatty (change of) liver, not elsewhere classified Status: Acute Assessment and Plan: Although hepatic steatosis with explain some liver enzyme elevation that would not explain her pain. (3) Elevated liver enzymes: Code(s): R74.8 - Abnormal levels of other serum enzymes Status: Acute Assessment and Plan: Her ALT was actually over 300 in November of this year when she was also having pain. This again suggest possible biliary sludge, choledocholithiasis. (4) Gastritis: Code(s): K29.70 - Gastritis, unspecified, without bleeding Status: Acute Assessment and Plan: EGD about 2 years ago revealed very mild gastritis with negative H pylori. She has been chronically on pantoprazole, therefore the likelihood of peptic ulcer disease is quite low. GI Consult Note Consult date/time: 10/28/22 12:29 HPI: Natalee Lopez is a 52 year old female who was admitted with severe epigastric pain. She states that she came to the emergency room yesterday her pain that seemed to begin in the epigastric area and radiate around both left and right side along the costal margins. She has had this on off for a couple of years. She was in the office 5 months ago and was set up for testing for celiac disease and hepatitis serology due to elevation of liver enzymes. She had been found to have a fatty liver on previous studies. She had a gallbladder removed about 15 years ago. This pain she states does resemble the gallbladder attack pain that she had. It makes her nauseated but she has not been vomiting. In fact she states she is hungry at this time. She has not had a fever. She denies weight loss. AST and ALT are 97 and 132 respectively today down from yesterday. Bilirubin is normal. Her white blood count is normal Review of Systems Review of Systems: All systems reviewed & are unremarkable except as noted in HPI and below PMFSH Past Medical History Medical History Abdominal bloating Constipation by delayed colonic transit Elevated liver enzymes GERD (gastroesophageal reflux disease) Hepatic steatosis Hypertension Surgical History Surgical History H/O abdominoplasty H/O esophagogastroduodenoscopy History of cholecystectomy Family History Family History Mother Hypertension Diabetes mellitus Father Family history of coronary artery disease Family history of congestive heart failure, Onset Age: 80 Diabetes mellitus Grandparent Colon cancer Social History Social History Smoking status: Never smoker Alcohol intake: current Drinks per week: 4 Substance use: never Substance use type: does not use Lack of Transportation: No Lack of Food: Never True Current Housing: I Have Housing Concerned About Future Housing: No Difficulty Paying Gas/Electric Bills: No Difficulty Paying for Meds: No Currently Unemployed: No Education: Associate Degree Difficulty w/ Childcare or Family Care: No Gender identity (if verbalized by the patient): Female Spiritual care concerns: No Meds Home Medications and Allergies Home Medications Medication Instructions Recorded Confirmed Type pantoprazole 40 mg tablet,delayed 40 mg PO DAILY 08/06/20 10/28/22 History release ferrous sulfate 325 mg (65 mg 325 mg PO DAILY 10/28/22 10/28/22 H
[2022-10-28 14:00] VITALS: BP 129/69; PULSE 86; RESP 16; TEMP 36.9; O2SAT 95
[2022-10-28] MEDS: POTASSIUM CHLORIDE 20 MEQ TABLET 40 MEQ PO (17:24)
[2022-10-28 22:00] VITALS: BP 148/87; PULSE 77; RESP 18; TEMP 36.6; O2SAT 95
[2022-10-28 23:28] VITALS: O2SAT 95
[2022-10-29] MEDS: LEVOTHYROXINE SODIUM 50 MCG TABLET PO (05:10)
[2022-10-29] MEDS: MORPHINE SULFATE (*CRX) 4 MG/ML INJ IV PUSH ×3 (05:10→20:19)
[2022-10-29] MEDS: SODIUM CHLORIDE 0.9% IV 1,000 ML 125 ML IV CONT ×2 (05:52→20:19)
[2022-10-29 06:00] VITALS: BP 137/83; PULSE 81; RESP 18; TEMP 36.6; O2SAT 90
[2022-10-29 06:39] LABS: Basophils Percent Auto 0.5 % (0.2-1.2); Eosinophils Absolute Auto 0.1 K/mm3 (0-0.3); Eosinophils Percent Auto 2.5 % (0-4.4); Hematocrit 33.7 % (37.0-47.0); Hemoglobin 11.3 g/dL (12.0-15.0); Immature Granulocyte Absolute 0.02 K/mm3 (0.00-0.031); Immature Granulocyte Percent A 0.5 % (0-0.5); Lymphocytes Absolute Auto 0.77 K/mm3 (0.9-3.2); Mean Corpuscular HGB Conc 33.5 g/dl (32-36); Mean Corpuscular Hemoglobin 30.6 pg (26-34); Mean Corpuscular Volume 91.3 fl (80-100); Mean Platelet Volume 8.9 fl (7.4-10.4); Monocytes Absolute Auto 0.5 K/mm3 (0.1-0.6); Monocytes Percent Auto 12.8 % (2.6-8.5); Neutrophils Absolute Auto 2.3 K/mm3 (1.3-6.7); Neutrophils Percent Auto 62.7 % (45.5-73.1); Platelet Count Result 179 k/mm3 (150-375); Red Blood Count 3.69 M/mm3 (4.2-5.4); Red Cell Distribution Width 12.1 % (11.5-14.5); White Blood Count 3.7 K/mm3 (4.5-10.0)
[2022-10-29 06:51] LABS: Alanine Aminotransferase 385 U/L (6-35); Albumin Level 3.8 g/dL (3.5-5.1); Alkaline Phosphatase 59 U/L (38-126); Anion Gap 6 mmol/L (8-16); Aspartate Amino Transferase 323 U/L (14-36); Bilirubin,Total 1.2 mg/dL (0.2-1.3); Blood Urea Nitrogen 9 mg/dL (7-17); Calcium 7.9 mg/dL (8.4-10.2); Carbon Dioxide 26 mmol/L (22-30); Chloride 107 mmol/L (98-107); Estimated CRCL calculation 102 ml/min; Estimated Glomerular Filt Rate > 60; Glucose 91 mg/dL (65-110); Lipase 165 U/L (23-300); Potassium 3.7 mmol/L (3.4-5.0); Sodium 139 mmol/L (137-145)
[2022-10-29 08:12] LABS: Hepatitis B Surface Antigen Negative (Negative)
[2022-10-29 08:18] LABS: HAV RESULT Negative (Negative); Hepatitis B Core IgM Result Negative (Negative)
[2022-10-29 08:29] LABS: Hepatitis C Virus Antibody Negative (Negative)
[2022-10-29] MEDS: PANTOPRAZOLE SODIUM IV 40 MG VIAL IV PUSH (09:17)
[2022-10-29] MEDS: LORazepam INJ (*CRX) 2 MG/ML VIAL 0.5 MG IV PUSH (11:53)
[2022-10-29 13:55] VITALS: BP 149/86; PULSE 88; RESP 16; TEMP 36.1; O2SAT 97
--- NOTE | 2022-10-29 16:21 | WPDGIPROGNO ---
Progress Note: A&P Assessment and Plan (1) Intractable abdominal pain: Code(s): R10.9 - Unspecified abdominal pain Status: Acute Assessment and Plan: Her symptoms suggest biliary colic. The liver enzyme elevation is supportive of that. Lipase however is normal as is the bilirubin. Ultrasound has been scheduled for today. We may want to consider MRCP MRCP only showed mild dilatation of the biliary tree. I reviewed her labs and noted that when she had not and attack last November, her AST was up to 474. It was then down to normal just over a month later. Now it is again elevated on admission, initially 126. Today it is 323. I think it is very likely she has biliary sludge. She states when her gallbladder was removed she was told that she had lot of sludge but not stones. I will schedule her for an ERCP to be done tomorrow. I discussed the procedure with her. I explained the technique the and uses sedation and intubation. I explained that there is a risk of bleeding or perforation. Explain the possibility of pancreatitis in about 3% of patients and that we try to avoid it by using an anti-inflammatory suppository prior to the procedure. She understands that pancreatitis could result in a prolonged hospitalization. (2) Hepatic steatosis: Code(s): K76.0 - Fatty (change of) liver, not elsewhere classified Status: Acute Assessment and Plan: Although hepatic steatosis with explain some liver enzyme elevation that would not explain her pain. I do not think that her abnormal liver enzymes are due to hepatic steatosis, as they would not be jumping up and down as hers have been. (3) Elevated liver enzymes: Code(s): R74.8 - Abnormal levels of other serum enzymes Status: Acute Assessment and Plan: Her ALT was actually over 300 in November of this year when she was also having pain. This again suggest possible biliary sludge, choledocholithiasis. (4) Gastritis: Code(s): K29.70 - Gastritis, unspecified, without bleeding Status: Acute Assessment and Plan: EGD about 2 years ago revealed very mild gastritis with negative H pylori. She has been chronically on pantoprazole, therefore the likelihood of peptic ulcer disease is quite low. Time Spent With Patient Time with patient: 25 - 35 minutes Subjective Date/time seen: 10/29/22 16:21 she is still having pain though not quite as bad as yesterday. Is a continuous pain in the epigastric area that still radiates bilaterally around the costal margin. The ultrasound which did not show up on the computer yesterday apparently was done yesterday and was read as normal except for hepatic steatosis. MRCP was not much help except it did show some modest dilatation of her biliary tree. She cannot Be certain if she had similar symptoms prior to her cholecystectomy because when she had it it was an abrupt onset of symptoms blood in the same area that she is having pain now. Exam Const: General: alert, uncomfortable and obese Nutritional Appearance: obese Orientation/consciousness: patient oriented x3 Resp: Auscultation: clear to auscultation bilaterally Cardio: Rhythm: regular rhythm GI: GI Palp: Yes Soft to palpation, Yes Tenderness to palpation present (GI) (Epigastric area and both upper quadrants), Yes Guarding due to palpation present (GI) (Slight guarding in the epigastric area) and Yes No hepatosplenomegaly present Percussion: Yes normal to percussion Auscultation: normal bowel sounds Neuro: General: patient oriented x3 Objective Data Vital Signs Vital Signs: Vital Signs - 24 hr 10/28/22 22:00 10/28/22 20:00 10/28/22 23:28 Temperature 36.6 C Pulse Rate 77 Respiratory Rate 18 Blood Pressure 148/87 H Pulse Oximetry 95 95 Oxygen Delivery Room Air Room Air 10/29/22 06:00 10/29/22 09:15 10/29/22 13:55 Temperature 36.6 C 36.1 C L Pulse Rate 81 88 Respiratory Rate 18 16 Blood Pressure 137
--- NOTE | 2022-10-29 18:08 | PM.IMPN ---
Progress Note: A&P Assessment and Plan (1) Elevated liver enzymes: Code(s): R74.8 - Abnormal levels of other serum enzymes Status: Acute Assessment and Plan: AST and ALT are higher today. Lipase remains normal. Bilirubin and alk-phos levels are normal. MRCP showing mild intrahepatic and extrahepatic biliary duct dilatation likely secondary to cholecystectomy. There is no evidence of choledocholithiasis. She did have diffuse hepatic steatosis. Hepatitis panel negative. Consider viral etiology. Could be acute viral (ALT>AST) with underlying hepatic steatosis. She may drink more alcohol then the hx provided but feel less likely. GI consulted and ERCP planned to exclude biliary obstruction. Continue PPI (2) Epigastric pain: Code(s): R10.13 - Epigastric pain Status: Acute Assessment and Plan: [place] epigastric pain related to above. (3) Acquired hypothyroidism: Code(s): E03.9 - Hypothyroidism, unspecified Status: Acute Assessment and Plan: Found in chart, not currently on replacement, TSH 5.78, T4 pending. Synthroid was started. (4) Hypertension: Code(s): I10 - Essential (primary) hypertension Status: Acute Assessment and Plan: Patient's blood pressure was reviewed on 10/29 Blood pressure remains well controlled. Will continue to monitor. resume losartan. (5) Hepatic steatosis: Code(s): K76.0 - Fatty (change of) liver, not elsewhere classified Status: Acute Assessment and Plan: Stable Plan DVT prophylaxis with SCDs Code status full code Subjective Date/time seen: 10/29/22 18:08 Interval history: 52yo female here for abdominal pain Assuming care. Chart reviewed. Patient's pain is still 5/10 this evening. When this 1st started, she took MiraLax and other laxatives with good results. She denies any melena or hematochezia prior to admission. She was having loose stools. She has had this happen before with elevated liver enzymes. She was seen in the emergency room on December 17, 2021 diagnosed with gastritis. No dysuria or hematuria. No vaginal discharge. Exam Narrative: General: No acute distress, alert and oriented per baseline HEENT: Atraumatic, normocephalic, mucous membranes moist CV: Regular rate and rhythm, S1, S2 Lungs: Clear to auscultation bilaterally, no rales or crackles noted, no wheezes, good air entry Abdomen: Soft, nondistended, Obese, right upper quadrant tenderness Extremities: Normal to inspection Skin: No rashes noted, no lesions or wounds seen Psych: Euthymic, normal affect Objective Data Vital Signs Vital Signs: Vital Signs - 24 hr 10/28/22 22:00 10/28/22 20:00 10/28/22 23:28 Temperature 97.8 F Pulse Rate 77 Respiratory Rate 18 Blood Pressure 148/87 H Pulse Oximetry 95 95 Oxygen Delivery Room Air Room Air 10/29/22 06:00 10/29/22 09:15 10/29/22 13:55 Temperature 97.9 F 97.0 F L Pulse Rate 81 88 Respiratory Rate 18 16 Blood Pressure 137/83 149/86 H Pulse Oximetry 90 97 Oxygen Delivery Room Air Intake/Output Intake/Output: Intake & Output 10/26/22 10/27/22 10/28/22 10/29/22 23:59 23:59 23:59 23:59 Intake Total 1999 1000 Balance 1999 1000 Meds/Results Medications: Active Medications Generic Name Dose Route Start Last Admin Trade Name Freq PRN Reason Stop Dose Admin Sodium Chloride 1,000 mls @ 125 mls/hr 10/28/22 05:50 10/29/22 05:52 Normal Saline Iv IV CONT 125 mls/hr .Q8H SIGIFREDO Administration Levothyroxine Sodium 50 mcg 10/29/22 06:30 10/29/22 05:10 Levothyroxine Sodium 50 Mcg Tablet PO 50 mcg DAILY@0630 SIGIFREDO Administration Morphine Sulfate 4 mg 10/28/22 11:50 10/29/22 10:34 Morphine Sulfate (*Crx) 4 Mg/Ml Inj IV PUSH 4 mg Q4HR PRN Administration Pain Rated 7-10 Pantoprazole Sodium 40 mg 10/29/22 09:00 10/29/22 09:17 Pantoprazole Sodium Iv 40 Mg Vial IV PUS
[2022-10-29 22:00] VITALS: BP 140/83; PULSE 90; RESP 18; TEMP 36.5; O2SAT 96
[2022-10-30] VITALS (12 sets, daily range): BP systolic 127–155; BP diastolic 67–98; PULSE 72–95; RESP 16–20; TEMP 36.2–36.6; O2SAT 95–100
[2022-10-30] MEDS: SODIUM CHLORIDE 0.9% IV 1,000 ML 125 ML IV CONT ×2 (05:59→20:28)
[2022-10-30] MEDS: MORPHINE SULFATE (*CRX) 4 MG/ML INJ IV PUSH ×3 (05:59→20:28)
[2022-10-30 06:50] LABS: Basophils Percent Auto 0.5 % (0.2-1.2); Eosinophils Absolute Auto 0.1 K/mm3 (0-0.3); Hematocrit 33.9 % (37.0-47.0); Hemoglobin 11.5 g/dL (12.0-15.0); Immature Granulocyte Absolute 0.03 K/mm3 (0.00-0.031); Immature Granulocyte Percent A 0.7 % (0-0.5); Lymphocytes Absolute Auto 0.91 K/mm3 (0.9-3.2); Lymphocytes Percent Auto 21.1 % (18.3-44.2); Mean Corpuscular HGB Conc 33.9 g/dl (32-36); Mean Corpuscular Hemoglobin 30.9 pg (26-34); Mean Corpuscular Volume 91.1 fl (80-100); Mean Platelet Volume 8.8 fl (7.4-10.4); Monocytes Absolute Auto 0.5 K/mm3 (0.1-0.6); Monocytes Percent Auto 11.6 % (2.6-8.5); Neutrophils Absolute Auto 2.7 K/mm3 (1.3-6.7); Neutrophils Percent Auto 63.1 % (45.5-73.1); Platelet Count Result 187 k/mm3 (150-375); Red Blood Count 3.72 M/mm3 (4.2-5.4); Red Cell Distribution Width 12.1 % (11.5-14.5); White Blood Count 4.3 K/mm3 (4.5-10.0)
[2022-10-30 07:02] LABS: Alanine Aminotransferase 260 U/L (6-35); Albumin Level 3.7 g/dL (3.5-5.1); Alkaline Phosphatase 55 U/L (38-126); Anion Gap 7 mmol/L (8-16); Aspartate Amino Transferase 110 U/L (14-36); Bilirubin,Total 0.9 mg/dL (0.2-1.3); Blood Urea Nitrogen 6 mg/dL (7-17); Carbon Dioxide 27 mmol/L (22-30); Chloride 105 mmol/L (98-107); Creatine Kinase 96 U/L (30-135); Estimated CRCL calculation 117 ml/min; Estimated Glomerular Filt Rate > 60; Glucose 102 mg/dL (65-110); Potassium 3.4 mmol/L (3.4-5.0); Sodium 139 mmol/L (137-145)
[2022-10-30] MEDS: PANTOPRAZOLE SODIUM IV 40 MG VIAL IV PUSH (09:15)
[2022-10-30] MEDS: LOSARTAN POTASSIUM 50 MG TABLET PO (10:14)
[2022-10-30] MEDS: LACTATED RINGERS 1,000 ML 150 ML IV CONT (12:46)
--- NOTE | 2022-10-30 12:51 | WPDANESEPPF ---
Anes - Initial Pre Proc Eval Procedure: Operation Date: 10/30/22 14:00 Proposed Procedures p Endoscopic Retro Cholangiopancreatogram - Mike Gama MD Date/Time: 10/30/22 12:51 Surgeon: Keanu Orosco DO Pre Op Diagnosis: abdominal pain intractable Patient Data Age: 52 Gender: F Height: 1.68 m Weight: 107.6 kg Last Vital Signs Temp 97.2 F L 10/30/22 12:42 Pulse 72 10/30/22 12:42 Resp 18 10/30/22 12:42 BP 150/83 H 10/30/22 12:42 Pulse Ox 100 10/30/22 12:42 O2 Del Method Room Air 10/30/22 12:42 Allergies Allergy/AdvReac Type Severity Reaction Status Date / Time No Known Allergies Allergy Verified 10/30/22 12:39 Home Medications Medication Instructions Recorded Confirmed Type pantoprazole 40 mg tablet,delayed 40 mg PO DAILY 08/06/20 10/28/22 History release ferrous sulfate 325 mg (65 mg 325 mg PO DAILY 10/28/22 10/28/22 History iron) tablet losartan 100 1 tablet PO DAILY 10/28/22 10/28/22 History mg-hydrochlorothiazide 25 mg tablet Laboratory Tests 10/30/22 10/30/22 06:22 06:22 WBC 4.3 K/mm3 L K/mm3 (4.5-10.0) RBC 3.72 M/mm3 L M/mm3 (4.2-5.4) Hgb 11.5 g/dL L g/dL (12.0-15.0) Hct 33.9 % L % (37.0-47.0) MCV 91.1 fl fl (80-100) MCH 30.9 pg pg (26-34) MCHC 33.9 g/dl g/dl (32-36) RDW 12.1 % % (11.5-14.5) Plt Count 187 k/mm3 k/mm3 (150-375) MPV 8.8 fl fl (7.4-10.4) Immature Gran % (Auto) 0.7 % H % (0-0.5) Neut % (Auto) 63.1 % % (45.5-73.1) Lymph % (Auto) 21.1 % % (18.3-44.2) [place] % (Auto) 11.6 % H % (2.6-8.5) Eos % (Auto) 3.0 % % (0-4.4) Baso % (Auto) 0.5 % % (0.2-1.2) Lymph # (Auto) 0.91 K/mm3 K/mm3 (0.9-3.2) [place] # (Auto) 0.5 K/mm3 K/mm3 (0.1-0.6) Eos # (Auto) 0.1 K/mm3 K/mm3 (0-0.3) Baso # (Auto) 0.0 K/mm3 K/mm3 (0.0-0.1) Abs Immat Gran (auto) 0.03 K/mm3 K/mm3 (0.00-0.031) Absolute Neuts (auto) 2.7 K/mm3 K/mm3 (1.3-6.7) Absolute Nucleated RBC 0.0 K/mm3 K/mm3 (0.0-0.012) Nucleated RBC % 0.0 % % (0.0-0.2) Sodium 139 mmol/L mmol/L (137-145) Potassium 3.4 mmol/L mmol/L (3.4-5.0) Chloride 105 mmol/L mmol/L (98-107) Carbon Dioxide 27 mmol/L mmol/L (22-30) Anion Gap 7 mmol/L L mmol/L (8-16) BUN 6 mg/dL L mg/dL (7-17) Creatinine 0.60 mg/dL L mg/dL (0.7-1.0) Estim Creat Clear Calc 117 ml/min ml/min Estimated GFR > 60 (59 - ) Glucose 102 mg/dL mg/dL (65-110) Calcium 8.0 mg/dL L mg/dL (8.4-10.2) Total Bilirubin 0.9 mg/dL mg/dL (0.2-1.3) AST 110 U/L H U/L (14-36) ALT 260 U/L H U/L (6-35) Alkaline Phosphatase 55 U/L U/L (38-126) Total Creatine Kinase 96 U/L U/L (30-135) Total Protein 7.0 g/dL g/dL (6.3-8.2) Albumin 3.7 g/dL g/dL (3.5-5.1) Patient hx anesthesia problems: none Family hx anesthesia problems: none Results Review: All pre-operative results and documents have been reviewed as part of the pre-operative evaluation. [facility] Past Medical History Medical History Abdominal bloating Constipation by delayed colonic transit Elevated liver enzymes GERD (gastroesophageal reflux disease) Hepatic steatosis Hypertension Surgical History Surgical History H/O abdominoplasty H/O esophagogastroduodenoscopy History of cholecystectomy Family History Family History Mother Hypertension Diabetes mellitus Father Family history of coronary artery disease Family history of congestive heart failure, Onset Age: 80 Diabetes mellitus Grandparent Colon cancer Social History Social History (Reviewed 10/28/22 @ 1
[2022-10-30] MEDS: INDOMETHACIN 50 MG SUPP.RECT 100 MG RECTAL (13:48)
[2022-10-30] MEDS: MIDAZOLAM HCL (*CRX) 2 MG/2 ML VIAL IV PUSH (15:16)
--- NOTE | 2022-10-30 15:20 | SUR.PHASEII ---
1505: DR RIOS NOTIFIED PT STATES SHE CAN'T CATCH HER BREATH AND IT FEELS FUNNY TO BREATH. PT AWAKE, ALERT, TALKING WITHOUT DIFFICULTY, 96% ON ROOM AIR, OCCASIONALLY DROPS TO 88-90% BUT QUICKLY COMES BACK UP. DR RIOS SEEING PT AND DISCUSSING. PT STATES TO DOCTOR I THINK I'M HAVING A MELTDOWN. NEW ORDERS RECEIVED FOR VERSED 2MG IVP TO BE GIVEN. 1520: VERSED GIVEN ORDERED. DR RIOS SEEING PT AGAIN. PT AWAKE AND ALERT, 02 AT 2L/NC APPLIED. WILL CONTINUE TO MONITOR. REPORT GIVEN TO HYACINTH ODELL IN ENDOSCOPY TO BE TAKING OVER PT CARE.
--- NOTE | 2022-10-30 16:57 | PM.IMPN ---
Progress Note: A&P Assessment and Plan (1) Choledocholithiasis: Code(s): K80.50 - Calculus of bile duct without cholangitis or cholecystitis without obstruction Status: Acute Assessment and Plan: AST and ALT elevated on admission. Lipase normal. Bilirubin and alk-phos levels also normal. MRCP showing mild intrahepatic and extrahepatic biliary duct dilatation likely secondary to cholecystectomy. There was no evidence of choledocholithiasis. She did have diffuse hepatic steatosis. Hepatitis panel negative. AST/ALT trending down now. ERCP peformed today with removal of a CBD stone. Sphincterotomy performed. Patient tolerated the procedure well. Repeat labs in am. Home when able to tolerate oral intake. (2) Epigastric pain: Code(s): R10.13 - Epigastric pain Status: Acute Assessment and Plan: As above (3) Elevated liver enzymes: Code(s): R74.8 - Abnormal levels of other serum enzymes Status: Acute Assessment and Plan: As above. (4) Acquired hypothyroidism: Code(s): E03.9 - Hypothyroidism, unspecified Status: Acute Assessment and Plan: Found in chart, not currently on replacement, TSH 5.78, T4 pending. Synthroid was started. (5) Hypertension: Code(s): I10 - Essential (primary) hypertension Status: Acute Assessment and Plan: Patient's blood pressure was reviewed on 10/30 Blood pressure remains well controlled. Will continue to monitor. Continue losartan. (6) Hepatic steatosis: Code(s): K76.0 - Fatty (change of) liver, not elsewhere classified Status: Acute Assessment and Plan: Stable Plan DVT prophylaxis with SCDs Code status full code Subjective Date/time seen: 10/30/22 16:57 Interval history: 52yo female here for abdominal pain. Patient is now back from her ERCP. Common bile duct stone was removed. Patient states she is feeling better. She states she became very depressed this morning after her medications but thinks it is probably 'nerves'. She has not eaten since she has been back from the ERCP. Abdominal pain is better. Exam Narrative: AF 97.8 127/78 82 18 97% Gen - NARD Chest - CTA bilaterally, nml RR CV - RRR S1/S2 Abd - Soft, mild RUQ tenderness, +BS Ext - No pedal edema Psych - Nml mood and affect Skin - Warm and dry Objective Data Vital Signs Vital Signs: Vital Signs - 24 hr 10/29/22 22:00 10/30/22 06:00 10/30/22 08:00 Temperature 97.7 F 97.5 F L Pulse Rate 90 73 73 Respiratory Rate 18 16 16 Blood Pressure 140/83 145/67 H Pulse Oximetry 96 96 96 Oxygen Delivery Room Air Oxygen Flow Rate 10/30/22 12:42 10/30/22 14:20 10/30/22 14:30 Temperature 97.2 F L 97.8 F Pulse Rate 72 84 95 Respiratory Rate 18 18 18 Blood Pressure 150/83 H 143/84 H 136/83 Pulse Oximetry 100 97 97 Oxygen Delivery Room Air Simple Face Mask Simple Face Mask Oxygen Flow Rate 6 6 10/30/22 14:40 10/30/22 14:50 10/30/22 15:00 Temperature Pulse Rate 86 84 86 Respiratory Rate 20 20 20 Blood Pressure 128/81 146/84 H 155/98 H Pulse Oximetry 100 100 98 Oxygen Delivery Simple Face Mask Room Air Room Air Oxygen Flow Rate 4 10/30/22 15:10 10/30/22 15:20 10/30/22 15:30 Temperature Pulse Rate 84 84 82 Respiratory Rate 20 18 18 Blood Pressure 146/88 H 143/89 H 127/78 Pulse Oximetry 95 96 97 Oxygen Delivery Room Air Nasal Cannula Nasal Cannula Oxygen Flow Rate 2 2 Intake/Output Intake/Output: Intake & Output 10/27/22 10/28/22 10/29/22 10/30/22 23:59 23:59 23:59 23:59 Intake Total 1999 2560 1275 Balance 1999 2560 1275 Meds/Results Medications: Active Medications Generic Name Dose Route Start Last Admin Trade Name Freq PRN Reason Stop Dose Admin Sodium Chloride 1,000 mls @ 125 mls/hr 10/28/22 05:50 10/30/22 15:34 Normal Saline Iv IV CONT Not Given .Q8H SIGIFREDO Levothyroxine Sodium 50 mcg 10/29/22 06:
[2022-10-31] MEDS: SODIUM CHLORIDE 0.9% IV 1,000 ML 125 ML IV CONT (04:54)
[2022-10-31 06:00] VITALS: BP 150/95; PULSE 73; RESP 18; TEMP 36.2; O2SAT 98
[2022-10-31] MEDS: LEVOTHYROXINE SODIUM 50 MCG TABLET PO (06:05)
--- NOTE | 2022-10-31 06:47 | WPDGIPROGNO ---
Progress Note: A&P Assessment and Plan (1) Intractable abdominal pain: Code(s): R10.9 - Unspecified abdominal pain Status: Acute Assessment and Plan: Her symptoms suggest biliary colic. The liver enzyme elevation is supportive of that. Lipase however is normal as is the bilirubin. Ultrasound has been scheduled for today. We may want to consider MRCP MRCP only showed mild dilatation of the biliary tree. I reviewed her labs and noted that when she had not and attack last November, her AST was up to 474. It was then down to normal just over a month later. Now it is again elevated on admission, initially 126. Today it is 323. I think it is very likely she has biliary sludge. She states when her gallbladder was removed she was told that she had lot of sludge but not stones. I will schedule her for an ERCP to be done tomorrow. I discussed the procedure with her. I explained the technique the and uses sedation and intubation. I explained that there is a risk of bleeding or perforation. Explain the possibility of pancreatitis in about 3% of patients and that we try to avoid it by using an anti-inflammatory suppository prior to the procedure. She understands that pancreatitis could result in a prolonged hospitalization. I discussed with her the results of the ERCP, the fact that she did have some though not a lot of sludge in the common bile duct. She does feel better today and therefore hopeful that this procedure leads to improvement in her symptoms. (2) Hepatic steatosis: Code(s): K76.0 - Fatty (change of) liver, not elsewhere classified Status: Acute Assessment and Plan: Although hepatic steatosis with explain some liver enzyme elevation that would not explain her pain. I do not think that her abnormal liver enzymes are due to hepatic steatosis, as they would not be jumping up and down as hers have been. (3) Elevated liver enzymes: Code(s): R74.8 - Abnormal levels of other serum enzymes Status: Acute Assessment and Plan: Her ALT was actually over 300 in November of this year when she was also having pain. This again suggest possible biliary sludge, choledocholithiasis. 10/31/2022 AST and ALT are coming down, 65 and 212 respectively. (4) Gastritis: Code(s): K29.70 - Gastritis, unspecified, without bleeding Status: Acute Assessment and Plan: EGD about 2 years ago revealed very mild gastritis with negative H pylori. She has been chronically on pantoprazole, therefore the likelihood of peptic ulcer disease is quite low. Plan I will advance her diet today. Think that she will should be able to tolerate a regular diet later today. Hopefully she can be discharged in the morning. Time Spent With Patient Time with patient: 25 - 35 minutes Subjective Date/time seen: 10/31/22 06:47 she is experiencing less pain since her ERCP yesterday at which time we found some sludge in her bile duct. She is eager to try eating and is feeling hungry now. I will try her on full liquid diet 1st and then advance as tolerated. I told her that they take days to weeks to see if her LFTs return to normal after this procedure Exam Const: General: alert, uncomfortable and obese Nutritional Appearance: obese Orientation/consciousness: patient oriented x3 Resp: Auscultation: clear to auscultation bilaterally Cardio: Rhythm: regular rhythm GI: GI Palp: Yes Soft to palpation, Yes Tenderness to palpation present (GI) ( Much less tender today) and Yes No hepatosplenomegaly present Percussion: Yes normal to percussion Auscultation: normal bowel sounds Neuro: General: patient oriented x3 Objective Data Vital Signs Vital Signs: Vital Signs - 24 hr 10/30/22 08:00 10/30/22 12:42 10/30/22 14:20 Temperature 36.2 C L 36.6 C Pulse Rate 73 72 84 Respiratory Rate 16 18 18 Blood Pressure 150/83 H 143/84 H Pulse Oximetry 96 100 97 Oxygen Delivery Room Air Room Air Simple
[2022-10-31 07:32] LABS: Basophils Percent Auto 0.1 % (0.2-1.2); Hemoglobin 11.6 g/dL (12.0-15.0); Immature Granulocyte Absolute 0.05 K/mm3 (0.00-0.031); Immature Granulocyte Percent A 0.6 % (0-0.5); Lymphocytes Absolute Auto 0.76 K/mm3 (0.9-3.2); Lymphocytes Percent Auto 9.2 % (18.3-44.2); Mean Corpuscular HGB Conc 34.1 g/dl (32-36); Mean Corpuscular Hemoglobin 29.8 pg (26-34); Mean Corpuscular Volume 87.4 fl (80-100); Mean Platelet Volume 8.7 fl (7.4-10.4); Monocytes Absolute Auto 0.5 K/mm3 (0.1-0.6); Monocytes Percent Auto 6.2 % (2.6-8.5); Neutrophils Percent Auto 83.9 % (45.5-73.1); Platelet Count Result 238 k/mm3 (150-375); Red Blood Count 3.89 M/mm3 (4.2-5.4); Red Cell Distribution Width 12.1 % (11.5-14.5); White Blood Count 8.3 K/mm3 (4.5-10.0)
[2022-10-31 07:44] LABS: Alanine Aminotransferase 212 U/L (6-35); Albumin Level 4.1 g/dL (3.5-5.1); Alkaline Phosphatase 58 U/L (38-126); Anion Gap 6 mmol/L (8-16); Aspartate Amino Transferase 65 U/L (14-36); Blood Urea Nitrogen 8 mg/dL (7-17); Calcium 8.2 mg/dL (8.4-10.2); Carbon Dioxide 27 mmol/L (22-30); Chloride 108 mmol/L (98-107); Estimated CRCL calculation 117 ml/min; Estimated Glomerular Filt Rate > 60; Glucose 116 mg/dL (65-110); Potassium 3.7 mmol/L (3.4-5.0); Sodium 141 mmol/L (137-145)
--- NOTE | 2022-10-31 07:55 | WPDANESPN ---
Anes - Prog Note Post-Op Date/Time: 10/31/22 07:55 Cardiovascular status: normal Respiratory status: normal Airway patency: baseline Mental status: baseline Post-Op hydration status: normal Vital Signs: Last Vital Signs Temp 36.2 C L 10/31/22 06:00 Pulse 73 10/31/22 06:00 Resp 18 10/31/22 06:00 BP 150/95 H 10/31/22 06:00 Pulse Ox 98 10/31/22 06:00 O2 Del Method Nasal Cannula 10/30/22 15:30 O2 Flow Rate 2 10/30/22 15:30 Pain Score (VAS): 11/04 I/O: Intake & Output 10/30/22 10/30/22 10/31/22 15:59 23:59 07:59 Intake Total 9761 193 0177 Balance 5925 993 0096 Laboratory Tests 10/31/22 06:57 10/31/22 06:57 10/31/22 10/31/22 06:57 06:57 WBC 8.3 RBC 3.89 L Hgb 11.6 L Hct 34.0 L MCV 87.4 MCH 29.8 MCHC 34.1 RDW 12.1 Plt Count 238 MPV 8.7 Immature Gran % (Auto) 0.6 H Neut % (Auto) 83.9 H Lymph % (Auto) 9.2 L [place] % (Auto) 6.2 Eos % (Auto) 0.0 Baso % (Auto) 0.1 L Lymph # (Auto) 0.76 L [place] # (Auto) 0.5 Eos # (Auto) 0.0 Baso # (Auto) 0.0 Abs Immat Gran (auto) 0.05 H Absolute Neuts (auto) 7.0 H Absolute Nucleated RBC 0.0 Nucleated RBC % 0.0 Sodium 141 Potassium 3.7 Chloride 108 H Carbon Dioxide 27 Anion Gap 6 L BUN 8 Creatinine 0.60 L Estim Creat Clear Calc 117 Estimated GFR > 60 Glucose 116 H Calcium 8.2 L Total Bilirubin 1.0 AST 65 H ALT 212 H Alkaline Phosphatase 58 Total Protein 7.0 Albumin 4.1 Post-procedural complaints: none Patient Feedback: Patient satisfied with anesthetic care.
[2022-10-31] MEDS: PANTOPRAZOLE 40 MG TABLET PO (08:47)
[2022-10-31] MEDS: MORPHINE SULFATE (*CRX) 4 MG/ML INJ IV PUSH ×3 (08:51→21:38)
[2022-10-31] MEDS: LOSARTAN POTASSIUM 100 MG TABLET PO (09:07)
[2022-10-31 14:00] VITALS: BP 136/80; PULSE 83; RESP 20; TEMP 36; O2SAT 100
--- NOTE | 2022-10-31 18:22 | PM.IMPN ---
Progress Note: A&P Assessment and Plan (1) Choledocholithiasis: Code(s): K80.50 - Calculus of bile duct without cholangitis or cholecystitis without obstruction Status: Acute Assessment and Plan: AST and ALT elevated on admission. Lipase normal.? Bilirubin and alk-phos levels also normal.? MRCP showing mild intrahepatic and extrahepatic biliary duct dilatation likely secondary to cholecystectomy. There was no evidence of choledocholithiasis.? She did have diffuse hepatic steatosis. Hepatitis panel negative. AST/ALT trending down now. ERCP performed 10/30/22 with removal of a CBD sludge and stone. Sphincterotomy performed. Patient tolerated the procedure well. Repeat labs showing LFTs trending down. Home is able to tolerate oral intake (2) Epigastric pain: Code(s): R10.13 - Epigastric pain Status: Acute Assessment and Plan: [place] epigastric pain related to above. Resolving (3) Elevated liver enzymes: Code(s): R74.8 - Abnormal levels of other serum enzymes Status: Acute Assessment and Plan: As above (4) Acquired hypothyroidism: Code(s): E03.9 - Hypothyroidism, unspecified Status: Acute Assessment and Plan: Found in chart, not currently on replacement, TSH 5.78, T4 pending. Synthroid was started. (5) Hypertension: Code(s): I10 - Essential (primary) hypertension Status: Acute Assessment and Plan: Patient's blood pressure was reviewed on 10/31 Blood pressure remains well controlled. Will continue to monitor. Advance losartan. (6) Hepatic steatosis: Code(s): K76.0 - Fatty (change of) liver, not elsewhere classified Status: Acute Assessment and Plan: Stable Plan DVT prophylaxis with SCDs Code status full code Subjective Date/time seen: 10/31/22 18:22 Interval history: 52yo female here for abdominal pain. She feels better. Abdominal pain better. She did feel bloated after eating lunch but no n/v. Exam Narrative: AF 96.8 136/80 83 20 100% Gen - NARD Chest - CTA bilaterally, nml RR CV - RRR S1/S2 Abd - Soft, obese, mild RUQ tenderness, +BS Ext - No pedal edema Psych - Nml mood and affect Skin - Warm and dry Objective Data Vital Signs Vital Signs: Vital Signs - 24 hr 10/30/22 22:00 10/31/22 06:00 10/31/22 09:00 Temperature 97.4 F L 97.1 F L Pulse Rate 84 73 Respiratory Rate 16 18 Blood Pressure 141/98 H 150/95 H Pulse Oximetry 96 98 Oxygen Delivery Room Air 10/31/22 14:00 Temperature 96.8 F L Pulse Rate 83 Respiratory Rate 20 Blood Pressure 136/80 Pulse Oximetry 100 Oxygen Delivery Intake/Output Intake/Output: Intake & Output 10/28/22 10/29/22 10/30/22 10/31/22 23:59 23:59 23:59 23:59 Intake Total 1999 2560 3135 2951 Balance 1999 2560 3135 2951 Meds/Results Medications: Active Medications Generic Name Dose Route Start Last Admin Trade Name Freq PRN Reason Stop Dose Admin Levothyroxine Sodium 50 mcg 10/29/22 06:30 10/31/22 06:05 Levothyroxine Sodium 50 Mcg Tablet PO 50 mcg DAILY@0630 SIGIFREDO Administration Losartan Potassium 100 mg 10/31/22 09:00 10/31/22 09:07 Losartan Potassium 100 Mg Tablet PO 100 mg DAILY SIGIFREDO Administration Morphine Sulfate 4 mg 10/28/22 11:50 10/31/22 15:03 Morphine Sulfate (*Crx) 4 Mg/Ml Inj IV PUSH 4 mg Q4HR PRN Administration Pain Rated 7-10 Pantoprazole Sodium 40 mg 10/31/22 09:00 10/31/22 08:47 Pantoprazole 40 Mg Tablet PO 40 mg QAM SIGIFREDO Administration Radiology Results: ITS Impressions Abdomen Ultrasound 10/29/22 07:09 Impression: Diffuse fatty infiltration of the liver with associated hepatomegaly. Dilated common bile duct, possibly related to prior cholecystectomy. MRCP 10/29/22 13:44 IMPRESSION: 1. Mild intrahepatic and extrahepatic biliary duct dilatation, likely secondary to cholecystectomy. No choledocholithiasi
[2022-10-31 22:00] VITALS: BP 140/86; PULSE 76; RESP 18; TEMP 36.9; O2SAT 97
[2022-11-01] MEDS: MORPHINE SULFATE (*CRX) 4 MG/ML INJ IV PUSH ×2 (04:34→08:34)
[2022-11-01 06:00] VITALS: BP 137/84; PULSE 69; RESP 18; TEMP 36.2; O2SAT 96
[2022-11-01 07:30] LABS: Basophils Percent Auto 0.4 % (0.2-1.2); Eosinophils Absolute Auto 0.1 K/mm3 (0-0.3); Eosinophils Percent Auto 0.8 % (0-4.4); Hematocrit 32.2 % (37.0-47.0); Hemoglobin 10.7 g/dL (12.0-15.0); Immature Granulocyte Absolute 0.04 K/mm3 (0.00-0.031); Immature Granulocyte Percent A 0.5 % (0-0.5); Lymphocytes Absolute Auto 1.99 K/mm3 (0.9-3.2); Lymphocytes Percent Auto 26.8 % (18.3-44.2); Mean Corpuscular HGB Conc 33.2 g/dl (32-36); Mean Corpuscular Volume 90.2 fl (80-100); Mean Platelet Volume 8.8 fl (7.4-10.4); Monocytes Absolute Auto 0.6 K/mm3 (0.1-0.6); Monocytes Percent Auto 8.5 % (2.6-8.5); Neutrophils Absolute Auto 4.7 K/mm3 (1.3-6.7); Platelet Count Result 233 k/mm3 (150-375); Red Blood Count 3.57 M/mm3 (4.2-5.4); Red Cell Distribution Width 12.6 % (11.5-14.5); White Blood Count 7.4 K/mm3 (4.5-10.0)
[2022-11-01 07:42] LABS: Alanine Aminotransferase 166 U/L (6-35); Albumin Level 3.6 g/dL (3.5-5.1); Alkaline Phosphatase 41 U/L (38-126); Anion Gap 5 mmol/L (8-16); Aspartate Amino Transferase 69 U/L (14-36); Bilirubin,Total 0.6 mg/dL (0.2-1.3); Blood Urea Nitrogen 11 mg/dL (7-17); Calcium 7.9 mg/dL (8.4-10.2); Carbon Dioxide 30 mmol/L (22-30); Chloride 108 mmol/L (98-107); Estimated CRCL calculation 102 ml/min; Estimated Glomerular Filt Rate > 60; Glucose 90 mg/dL (65-110); Potassium 3.4 mmol/L (3.4-5.0); Sodium 143 mmol/L (137-145)
[2022-11-01] MEDS: PANTOPRAZOLE 40 MG TABLET PO (08:32)
[2022-11-01] MEDS: LOSARTAN POTASSIUM 100 MG TABLET PO (08:32)
[2022-11-01] MEDS: LEVOTHYROXINE SODIUM 50 MCG TABLET PO (08:32)
--- NOTE | 2022-11-01 11:54 | WPDGIPROGNO ---
Progress Note: A&P Assessment and Plan (1) Intractable abdominal pain: Code(s): R10.9 - Unspecified abdominal pain Status: Acute Assessment and Plan: MRCP only showed mild dilatation of the biliary tree. I reviewed her labs and noted that when she had not and attack last November, her AST was up to 474. It was then down to normal just over a month later. Now it is again elevated on admission, initially 126. Today it is 323. I think it is very likely she has biliary sludge. She states when her gallbladder was removed she was told that she had lot of sludge but not stones. I will schedule her for an ERCP to be done tomorrow. I discussed the procedure with her. I explained the technique the and uses sedation and intubation. I explained that there is a risk of bleeding or perforation. Explain the possibility of pancreatitis in about 3% of patients and that we try to avoid it by using an anti-inflammatory suppository prior to the procedure. She understands that pancreatitis could result in a prolonged hospitalization. I discussed with her the results of the ERCP, the fact that she did have some though not a lot of sludge in the common bile duct. She does feel better today and therefore hopeful that this procedure leads to improvement in her symptoms. although her pain in general has decreased, and she no longer feels that she needs morphine, she is sore now in the left upper quadrant. This is likely some pancreatitis secondary to the procedure. I will place her on low-fat diet reduce morphine from 4 mg to 2 mg begin [place] orally (2) Hepatic steatosis: Code(s): K76.0 - Fatty (change of) liver, not elsewhere classified Status: Acute Assessment and Plan: Although hepatic steatosis with explain some liver enzyme elevation that would not explain her pain. I do not think that her abnormal liver enzymes are due to hepatic steatosis, as they would not be jumping up and down as hers have been. (3) Elevated liver enzymes: Code(s): R74.8 - Abnormal levels of other serum enzymes Status: Acute Assessment and Plan: Her ALT was actually over 300 in November of this year when she was also having pain. This again suggest possible biliary sludge, choledocholithiasis. 10/31/2022 ALT is now down to 166, from 385 3 days ago (4) Gastritis: Code(s): K29.70 - Gastritis, unspecified, without bleeding Status: Acute Assessment and Plan: EGD about 2 years ago revealed very mild gastritis with negative H pylori. She has been chronically on pantoprazole, therefore the likelihood of peptic ulcer disease is quite low. Plan switching from morphine to [place]. Low-fat diet because of probable pancreatitis possible discharge tomorrow Time Spent With Patient Time with patient: 25 - 35 minutes Subjective Date/time seen: 11/01/22 11:54 she states that she is having discomfort now in the left upper quadrant, as though she had been punched. Less discomfort in right upper quadrant. She is having bowel movements. She is tolerating her regular diet. she has been receiving morphine for her pain, 4 mg, but she feels he does not need it that strong. I will start her on oral analgesics and change she morphine to 2 mg p.r.n. I believe that she may have some pancreatitis secondary to the ERCP explaining her left upper quadrant discomfort Exam Const: General: alert, uncomfortable and obese Nutritional Appearance: obese Orientation/consciousness: patient oriented x3 Resp: Auscultation: clear to auscultation bilaterally Cardio: Rhythm: regular rhythm GI: GI Palp: Yes abdominal tenderness ( now left upper quadrant more than right upper quadrant), Yes Soft to palpation and Yes No hepatosplenomegaly present Percussion: Yes normal to percussion Auscultation: normal bowel sounds Neuro: General: patient oriented x3 Objective Data Vital Signs Vital Signs: Vital Signs - 24 hr 01
[2022-11-01] MEDS: HYDROcodone/acetaminophen (*CRX) 10-325 MG TABLET 1 TAB PO (13:34)
[2022-11-01 14:00] VITALS: BP 127/70; PULSE 67; RESP 16; TEMP 36.1; O2SAT 97
--- NOTE | 2022-11-01 15:09 | PM.IMPN ---
Progress Note: A&P Assessment and Plan (1) Choledocholithiasis: Code(s): K80.50 - Calculus of bile duct without cholangitis or cholecystitis without obstruction Status: Acute Assessment and Plan: AST and ALT elevated on admission. Lipase, Bilirubin and alk-phos levels normal.? MRCP showing mild intrahepatic and extrahepatic biliary duct dilatation likely secondary to cholecystectomy. There was no evidence of choledocholithiasis.? She did have diffuse hepatic steatosis. Hepatitis panel negative. ERCP performed 10/30/22 with balloon sweep and removal of stone, debris and sludge. Sphincterotomy performed. Patient tolerated the procedure well. Repeat labs showing LFTs trending down. Still having abdominal pain but felt related to post-procedure pancreatitis. Home when able to tolerate oral intake and pain better. (2) Epigastric pain: Code(s): R10.13 - Epigastric pain Status: Acute Assessment and Plan: [place] epigastric pain related to above. Follow (3) Elevated liver enzymes: Code(s): R74.8 - Abnormal levels of other serum enzymes Status: Acute Assessment and Plan: As above (4) Acquired hypothyroidism: Code(s): E03.9 - Hypothyroidism, unspecified Status: Acute Assessment and Plan: Patient has a TSH 5.78. Synthroid was started but hold this and have this followed by her PCP. (5) Hypertension: Code(s): I10 - Essential (primary) hypertension Status: Acute Assessment and Plan: Patient's blood pressure was reviewed on 11/01 Blood pressure remains well controlled. Will continue to monitor. Continue home losartan. (6) Hepatic steatosis: Code(s): K76.0 - Fatty (change of) liver, not elsewhere classified Status: Acute Assessment and Plan: Stable Plan DVT prophylaxis with SCDs Code status full code Subjective Date/time seen: 11/01/22 15:09 Interval history: 52yo female here for abdominal pain. Stil with bloating after eating. ALso with persistent abd pain but better today. No n/v. Flatus but no BM. Up walking in halls. Exam Narrative: AF 96.9 67 16 97% ra Gen - NARD Chest - CTA bilaterally, nml RR CV - RRR S1/S2 Abd - Soft, obese, mild RUQ and epigatric tenderness, +BS Ext - No pedal edema Psych - Nml mood and affect Skin - Warm and dry Objective Data Vital Signs Vital Signs: Vital Signs - 24 hr 10/31/22 22:00 11/01/22 06:00 11/01/22 09:00 Temperature 98.5 F 97.2 F L Pulse Rate 76 69 Respiratory Rate 18 18 Blood Pressure 140/86 137/84 Pulse Oximetry 97 96 Oxygen Delivery Room Air 11/01/22 14:00 Temperature 96.9 F L Pulse Rate 67 Respiratory Rate 16 Blood Pressure 127/70 Pulse Oximetry 97 Oxygen Delivery Intake/Output Intake/Output: Intake & Output 10/29/22 10/30/22 10/31/22 11/01/22 23:59 23:59 23:59 23:59 Intake Total 2560 3135 2951 1120 Balance 2560 3135 2951 1120 Meds/Results Medications: Active Medications Generic Name Dose Route Start Last Admin Trade Name Freq PRN Reason Stop Dose Admin Hydrocodone Bitart/Acetaminophen 1 tab 11/01/22 11:53 11/01/22 13:34 Hydrocodone/Acetaminophen (*Crx) 10-325 Mg Tablet PO 1 tab Q6H PRN Administration Pain Rated 6 or Greater Levothyroxine Sodium 50 mcg 10/29/22 06:30 11/01/22 08:32 Levothyroxine Sodium 50 Mcg Tablet PO 50 mcg DAILY@0630 SIGIFREDO Administration Losartan Potassium 100 mg 10/31/22 09:00 11/01/22 08:32 Losartan Potassium 100 Mg Tablet PO 100 mg DAILY SIGIFREDO Administration Morphine Sulfate 2 mg 11/01/22 11:53 Morphine Sulfate (*Crx) 2 Mg/Ml Inj IV PUSH Q4HR PRN Pain Rated 7-10 Pantoprazole Sodium 40 mg 10/31/22 09:00 11/01/22 08:32 Pantoprazole 40 Mg Tablet PO 40 mg QAM SIGIFREDO Administration Radiology Results: ITS Impressions Abdomen Ultrasound 10/29/22 07:09 Impression: Diffuse fatty infiltra
[2022-11-01] MEDS: MORPHINE SULFATE (*CRX) 2 MG/ML INJ IV PUSH ×2 (17:23→21:29)
[2022-11-01 22:00] VITALS: BP 140/80; PULSE 77; RESP 18; TEMP 36.5; O2SAT 96
[2022-11-02] MEDS: HYDROcodone/acetaminophen (*CRX) 10-325 MG TABLET 1 TAB PO ×2 (03:38→12:33)
[2022-11-02 06:00] VITALS: BP 141/75; PULSE 74; RESP 16; TEMP 37.2; O2SAT 97
[2022-11-02 06:32] LABS: Basophils Percent Auto 0.5 % (0.2-1.2); Eosinophils Absolute Auto 0.1 K/mm3 (0-0.3); Hematocrit 33.1 % (37.0-47.0); Hemoglobin 11.1 g/dL (12.0-15.0); Immature Granulocyte Absolute 0.05 K/mm3 (0.00-0.031); Immature Granulocyte Percent A 0.9 % (0-0.5); Lymphocytes Absolute Auto 1.92 K/mm3 (0.9-3.2); Lymphocytes Percent Auto 32.7 % (18.3-44.2); Mean Corpuscular HGB Conc 33.5 g/dl (32-36); Mean Corpuscular Hemoglobin 30.2 pg (26-34); Mean Corpuscular Volume 90.2 fl (80-100); Mean Platelet Volume 8.6 fl (7.4-10.4); Monocytes Absolute Auto 0.6 K/mm3 (0.1-0.6); Monocytes Percent Auto 9.5 % (2.6-8.5); Neutrophils Absolute Auto 3.2 K/mm3 (1.3-6.7); Neutrophils Percent Auto 54.4 % (45.5-73.1); Platelet Count Result 220 k/mm3 (150-375); Red Blood Count 3.67 M/mm3 (4.2-5.4); Red Cell Distribution Width 12.3 % (11.5-14.5); White Blood Count 5.9 K/mm3 (4.5-10.0)
[2022-11-02 06:48] LABS: Alanine Aminotransferase 164 U/L (6-35); Albumin Level 3.5 g/dL (3.5-5.1); Alkaline Phosphatase 41 U/L (38-126); Anion Gap 5 mmol/L (8-16); Aspartate Amino Transferase 85 U/L (14-36); Bilirubin,Total 0.6 mg/dL (0.2-1.3); Blood Urea Nitrogen 10 mg/dL (7-17); Calcium 8.2 mg/dL (8.4-10.2); Carbon Dioxide 29 mmol/L (22-30); Chloride 107 mmol/L (98-107); Estimated CRCL calculation 102 ml/min; Estimated Glomerular Filt Rate > 60; Glucose 95 mg/dL (65-110); Potassium 3.6 mmol/L (3.4-5.0); Sodium 141 mmol/L (137-145)
[2022-11-02 07:18] LABS: Lipase 180 U/L (23-300)
--- NOTE | 2022-11-02 07:58 | WPDGIPROGNO ---
Progress Note: A&P Assessment and Plan (1) Intractable abdominal pain: Code(s): R10.9 - Unspecified abdominal pain Status: Acute Assessment and Plan: MRCP only showed mild dilatation of the biliary tree. I reviewed her labs and noted that when she had not and attack last November, her AST was up to 474. It was then down to normal just over a month later. Now it is again elevated on admission, initially 126. Today it is 323. I think it is very likely she has biliary sludge. She states when her gallbladder was removed she was told that she had lot of sludge but not stones. I will schedule her for an ERCP to be done tomorrow. I discussed the procedure with her. I explained the technique the and uses sedation and intubation. I explained that there is a risk of bleeding or perforation. Explain the possibility of pancreatitis in about 3% of patients and that we try to avoid it by using an anti-inflammatory suppository prior to the procedure. She understands that pancreatitis could result in a prolonged hospitalization. I discussed with her the results of the ERCP, the fact that she did have some though not a lot of sludge in the common bile duct. She does feel better today and therefore hopeful that this procedure leads to improvement in her symptoms. although her pain in general has decreased, and she no longer feels that she needs morphine, she is sore now in the left upper quadrant. This is likely some pancreatitis secondary to the procedure. I will place her on low-fat diet reduce morphine from 4 mg to 2 mg begin [place] orally 11/02/2022 her pain is no longer in the abdomen. She states that she was using her analgesics last night, morphine and [place] because of pain in her neck and back. I checked a lipase and it is normal (2) Hepatic steatosis: Code(s): K76.0 - Fatty (change of) liver, not elsewhere classified Status: Acute Assessment and Plan: Although hepatic steatosis with explain some liver enzyme elevation that would not explain her pain. I do not think that her abnormal liver enzymes are due to hepatic steatosis, as they would not be jumping up and down as hers have been. (3) Elevated liver enzymes: Code(s): R74.8 - Abnormal levels of other serum enzymes Status: Acute Assessment and Plan: Her ALT was actually over 300 in November of this year when she was also having pain. This again suggest possible biliary sludge, choledocholithiasis. 10/31/2022 ALT is now down to 166, from 385 3 days ago 11/02/2022 the LFTs have leveled off. These will be followed as an outpatient. (4) Gastritis: Code(s): K29.70 - Gastritis, unspecified, without bleeding Status: Acute Assessment and Plan: EGD about 2 years ago revealed very mild gastritis with negative H pylori. She has been chronically on pantoprazole, therefore the likelihood of peptic ulcer disease is quite low. Plan From my perspective she could be discharged today. I would like her to follow-up with me in the office in about 4 weeks Time Spent With Patient Time with patient: 25 - 35 minutes Subjective Date/time seen: 11/02/22 07:58 She states that she is not having abdominal pain now. she had requested morphine last evening and [place] during the night but she states this is because of her neck pain and back discomfort. She does not have any pain after meals. Review of Systems Review of Systems: Neck pain is her only new complaint and she attributes this correctly to the position she was lying for her ERCP All systems reviewed & are unremarkable except as noted in HPI and below Exam Const: General: alert, uncomfortable and obese Nutritional Appearance: obese Orientation/consciousness: patient oriented x3 Resp: Auscultation: clear to auscultation bilaterally Cardio: Rhythm: regular rhythm GI: GI Palp: No abdominal tenderness, Yes Soft to palpation, No Guarding due to palpation
[2022-11-02] MEDS: PANTOPRAZOLE 40 MG TABLET PO (08:39)
[2022-11-02] MEDS: hydroCHLOROthiazide 25 MG TABLET PO (08:39)
[2022-11-02] MEDS: LOSARTAN POTASSIUM 100 MG TABLET PO (08:39)
[2022-11-02 14:50] VITALS: BP 132/82; PULSE 70; RESP 16; TEMP 36.4; O2SAT 100
--- NOTE | 2022-11-02 16:41 | PM.DS ---
DS: Admitting Diagnosis Discharge Date 11/02/22 Admitting Diagnosis Abdominal pain. DS: Discharge Diagnosis Discharge Diagnosis (1) Choledocholithiasis: Code(s): K80.50 - Calculus of bile duct without cholangitis or cholecystitis without obstruction Status: Acute (2) Epigastric pain: Code(s): R10.13 - Epigastric pain Status: Acute (3) Elevated liver enzymes: Code(s): R74.8 - Abnormal levels of other serum enzymes Status: Acute (4) Acquired hypothyroidism: Code(s): E03.9 - Hypothyroidism, unspecified Status: Acute (5) Hypertension: Code(s): I10 - Essential (primary) hypertension Status: Acute (6) Hepatic steatosis: Code(s): K76.0 - Fatty (change of) liver, not elsewhere classified Status: Acute DS: Summary Hospital Course Reason for hospitalization: 52yo female here for abdominal pain. Please see H&P for details Hospital Course: Patient presents with abdominal pain. AST and ALT elevated on admission. Lipase, Bilirubin and alk-phos levels normal.? MRCP showing mild intrahepatic and extrahepatic biliary duct dilatation likely secondary to cholecystectomy. There was no evidence of choledocholithiasis.? She did have diffuse hepatic steatosis. Hepatitis panel negative. ERCP performed 10/30/22 with balloon sweep and removal of stone, debris and sludge. Sphincterotomy performed. Patient tolerated the procedure well. Still having abdominal pain but repeat labs showing LFTs trending down and Lipase normal. Tolerating oral intake and pain better. She did well and was able to be discharged home on 11/02/22 Status at Discharge Cognitive/behavioral status at discharge: Stable Time Spent with Patient Time attestation: Total time spent providing and/or coordinating discharge services:34 minutes Time spent: Greater than 30 minutes Exam Narrative: AF ? 97.6 132/82 70 16 100% ra Gen - NARD Chest - CTA bilaterally, nml RR CV - RRR S1/S2 Abd - Soft, obese, mild epigastric tenderness, +BS Ext - No pedal edema Psych - Nml mood and affect Skin - Warm and dry DS: Data Data Completed and Pending Labs on day of discharge: Labs from last 24 hours 11/02/22 11/02/22 11/02/22 06:17 06:17 06:13 WBC 5.9 RBC 3.67 L Hgb 11.1 L Hct 33.1 L MCV 90.2 MCH 30.2 MCHC 33.5 RDW 12.3 Plt Count 220 MPV 8.6 Immature Gran % (Auto) 0.9 H Neut % (Auto) 54.4 Lymph % (Auto) 32.7 [place] % (Auto) 9.5 H Eos % (Auto) 2.0 Baso % (Auto) 0.5 Lymph # (Auto) 1.92 [place] # (Auto) 0.6 Eos # (Auto) 0.1 Baso # (Auto) 0.0 Abs Immat Gran (auto) 0.05 H Absolute Neuts (auto) 3.2 Absolute Nucleated RBC 0.0 Nucleated RBC % 0.0 Sodium 141 Potassium 3.6 Chloride 107 Carbon Dioxide 29 Anion Gap 5 L BUN 10 Creatinine 0.70 Estim Creat Clear Calc 102 Estimated GFR > 60 Glucose 95 Calcium 8.2 L Total Bilirubin 0.6 AST 85 H ALT 164 H Alkaline Phosphatase 41 Total Protein 6.0 L Albumin 3.5 Lipase 180 Discharge Plan Discharge Attending physician on discharge: Gaurang Shay Consulting providers: Mike Gama Discharging Clinician: Gaurang Shay Anticipated Discharge Date/Time: 11/02/22 16:45 Patient Disposition: Home, Self-Care Activity: as tolerated Diet: low fat Discharge Instructions: Follow-up with your primary care provider in 1-2 weeks. Please call for appointment. Follow-up with Dr Gama in 4 weeks. Please call for an appointment. Thank you for using [facility] for your health care needs. Patient Instructions: Antibiotic Form Stand Alone Forms: General Discharge Information Follow-up/Referrals: Mike Gama MD [Physician] - Call for Appointment Paula,Zainab Tadeo MD [Primary Care Provider] - Call for Appointment Discharge Medications: Continued pantoprazole 40 mg ta
== END 2022-11-02 17:35 | disposition home or self-care (01) | DRG 444 ==
LOC: ANHED 10-28 05:55 → ANH3MEDSUR 10-28 08:35
PROVIDERS: Internal Medicine Gastroenterology; Student in an Organized Health Care Education/Training Program; Admitting Provider Student in an Organized Health Care Education/Training Program; Emergency Provider Emergency Medicine; PCP Family Medicine; Visit Provider Internal Medicine
PROC: 0FC98ZZ Extirpation of Matter from Common Bile Duct, Via Natural or Artificial Opening Endoscopic (ICD-10-PCS; CPT 43260; principal; 2022-10-30 14:00)
DX: K80.50 Calculus of bile duct without cholangitis or cholecystitis without obstruction (principal); K85.80 Other acute pancreatitis without necrosis or infection; K91.89 Other postprocedural complications and disorders of digestive system; K57.10 Diverticulosis of small intestine without perforation or abscess without bleeding; E03.9 Hypothyroidism, unspecified; I10 Essential (primary) hypertension; K76.0 Fatty (change of) liver, not elsewhere classified; Z20.822 Contact with and (suspected) exposure to COVID-19; K21.9 Gastro-esophageal reflux disease without esophagitis; K29.70 Gastritis, unspecified, without bleeding; F32.A Depression, unspecified; E66.9 Obesity, unspecified; Z68.38 Body mass index [BMI] 38.0-38.9, adult; Z90.49 Acquired absence of other specified parts of digestive tract
CPT/HCPCS: 36415; 74183; 74329; 76376; 76705; 80053; 80074; 82550; 83690; 84443; 84484; 85025; 87636; 96374; 96375; 96376; 99285; A9270; A9577; C9113; G0378; J0330; J1100; J1610; J2060; J2250; J2270; J2370; J2405; J2704; J3010; J7030; J7120

== ENCOUNTER 2022-11-03 15:38 | Emergency (ER) | payer BC, SELFPAY ==
--- NOTE | ~2022-11-03 | CT_ITS ---
EXAMINATION: CT abdomen pelvis w con DATE: 11/03/2022 18:53 INDICATION: epigastric abd pain, recent ERCP TECHNIQUE: Computed tomography (CT) of the abdomen and pelvis was performed with 100 mL Omnipaque-350 intravenous contrast. Automated exposure control and iterative reconstruction technique were employe d. The dose-length product was 1233.18 mGy-cm. COMPARISON: 10/27/2022. FINDINGS: Lower thorax: Mild dependent atelectasis. Small hiatal hernia. Coronary artery calcification. Liver: Enlarged diffusely fatty infiltrated liver. Biliary/Gallbladder: Gallbladder is absent. Mild extrahepatic duct dilation likely secondary to milagro cystectomy. Pancreas: No mass or duct dilation. Spleen: Normal. Adrenals:No mass. Kidneys: No suspicious mass, stone, or hydronephrosis. Right inferior pole hypodensity, too small to characterize but most likely represents a cyst. GI tract: Distal esophageal and gastric wall edema No small or large bowel dilation. Normal appendix. Mesentery/Peritoneum: No ascites, mass, or free air. Retroperitoneum: No mass. Atherosclerotic abdominal aortic and/or arterial calcifications. Pelvis: Pelvic organs are within normal limits. Soft Tissues: Soft tissues and body wall unremarkable. Bones: No acute osseous finding. IMPRESSION: Esophagitis/gastritis. Otherwise, no acute abdominopelvic process detected. Hepatomegaly with steatos is. Reviewed, dictated and finalized at location K. ATOLOGY PROCEDURAL PHYSICIAN IMPRESSION: Esophagitis/gastritis. Otherwise, no acute abdominopelvic process detected. Hep atomegaly with steatosis.
[2022-11-03 15:59] VITALS: BP 145/88; PULSE 94; RESP 16; TEMP 36.4; O2SAT 98
[2022-11-03 16:15] LABS: Basophils Absolute Auto 0.1 K/mm3 (0.0-0.1); Basophils Percent Auto 0.6 % (0.2-1.2); Eosinophils Absolute Auto 0.1 K/mm3 (0-0.3); Eosinophils Percent Auto 1.5 % (0-4.4); Hematocrit 41.1 % (37.0-47.0); Immature Granulocyte Absolute 0.04 K/mm3 (0.00-0.031); Immature Granulocyte Percent A 0.5 % (0-0.5); Lymphocytes Percent Auto 22.3 % (18.3-44.2); Mean Corpuscular HGB Conc 34.1 g/dl (32-36); Mean Corpuscular Hemoglobin 30.6 pg (26-34); Mean Corpuscular Volume 89.7 fl (80-100); Mean Platelet Volume 8.3 fl (7.4-10.4); Monocytes Absolute Auto 0.7 K/mm3 (0.1-0.6); Monocytes Percent Auto 8.1 % (2.6-8.5); Neutrophils Absolute Auto 5.4 K/mm3 (1.3-6.7); Platelet Count Result 307 k/mm3 (150-375); Red Blood Count 4.58 M/mm3 (4.2-5.4); Red Cell Distribution Width 12.3 % (11.5-14.5); White Blood Count 8.1 K/mm3 (4.5-10.0)
[2022-11-03 16:25] LABS: Alanine Aminotransferase 177 U/L (6-35); Albumin Level 4.7 g/dL (3.5-5.1); Alkaline Phosphatase 53 U/L (38-126); Anion Gap 9 mmol/L (8-16); Aspartate Amino Transferase 92 U/L (14-36); Bilirubin,Total 0.7 mg/dL (0.2-1.3); Blood Urea Nitrogen 8 mg/dL (7-17); Calcium 9.9 mg/dL (8.4-10.2); Carbon Dioxide 30 mmol/L (22-30); Chloride 99 mmol/L (98-107); Estimated CRCL calculation 78 ml/min; Estimated Glomerular Filt Rate > 60; Glucose 107 mg/dL (65-110); Lipase 179 U/L (23-300); Potassium 3.6 mmol/L (3.4-5.0); Sodium 138 mmol/L (137-145)
[2022-11-03 17:00] LABS: Add Urine Microscopic? YES; Appearance Urine Clear (Clear); Bilirubin Urine Negative (Negative); Blood Urine Negative (Negative); Color Urine Yellow (Yellow); Glucose Urine UA Negative (Negative); Ketones Urine Negative (Negative); Leukocyte Esterase Ur 1+ LEU/UL (Negative); Nitrate Urine Negative (Negative); Protein Urine Negative (Negative); Urobilinogen Urine 0.2 mg/dL (<2.0)
[2022-11-03 17:06] LABS: Mucus Urine Rare /lpf; RBC Urine 0-2 /hpf (0-2); Squamous Epithelial Cell Urine Few /hpf (Few)
--- NOTE | 2022-11-03 18:21 | ED.ABDPAIN ---
HPI - Abdominal Pain General Chief Complaint: Abdominal Pain Stated Complaint: abdominal pain Time Seen by Provider: 11/03/22 17:33 Source: patient Mode of arrival: ambulatory Limitations: no limitations History of Present Illness HPI narrative: This is a 52 year old female that presents to the ER for epigastric pain ongoing today. Was recently admitted for same. Had ERCP done by Dr. Gama with removal of a stone. Reports she was discharged last night. She had return of her pain today which prompted her to be seen. The pain is sharp and constant in nature. She took an anti-inflammatory with little relief. Does report some loose stools. Denies fever, nausea, or vomiting. Related Data Home Medications Medication Instructions Recorded Confirmed pantoprazole 40 mg tablet,delayed 40 mg PO DAILY 08/06/20 10/28/22 release ferrous sulfate 325 mg (65 mg 325 mg PO DAILY 10/28/22 10/28/22 iron) tablet losartan 100 1 tablet PO DAILY 10/28/22 10/28/22 mg-hydrochlorothiazide 25 mg tablet Allergies Allergy/AdvReac Type Severity Reaction Status Date / Time No Known Allergies Allergy Verified 11/03/22 17:52 Review of Systems Review of Systems: CONSTITUTIONAL: Denies fever CARDIOVASCULAR: Denies chest pain RESPIRATORY: Denies dyspnea. GASTROINTESTINAL: Reports abdominal pain and diarrhea. Denies nausea, vomiting GENITOURINARY: Denies dysuria or hematuria. All systems reviewed & are unremarkable except as noted in HPI and below PMFSH Past Medical History Medical History Abdominal bloating Constipation by delayed colonic transit Elevated liver enzymes GERD (gastroesophageal reflux disease) Hepatic steatosis Hypertension Surgical History Surgical History H/O abdominoplasty H/O esophagogastroduodenoscopy History of cholecystectomy Family History Family History Mother Hypertension Diabetes mellitus Father Family history of coronary artery disease Family history of congestive heart failure, Onset Age: 80 Diabetes mellitus Grandparent Colon cancer Social History Social History Smoking status: Never smoker Alcohol intake: current Drinks per week: 4 Substance use: never Substance use type: does not use Lack of Transportation: No Lack of Food: Never True Current Housing: I Have Housing Concerned About Future Housing: No Difficulty Paying Gas/Electric Bills: No Difficulty Paying for Meds: No Currently Unemployed: No Education: Associate Degree Difficulty w/ Childcare or Family Care: No Gender identity (if verbalized by the patient): Female Spiritual care concerns: No Exam Narrative: GENERAL: Well-appearing, well-nourished, and in no acute distress. HEAD: Normocephalic, atraumatic. EYES: PERRLA and EOMI. ENT: Nares clear, no rhinorrhea or epistaxis. Mucous membranes moist. Oropharynx without tonsillar hypertrophy exudate or other lesions. Bilateral TMs pearly heredia non-bulging NECK: Supple. No adenopathy or masses. No carotid bruits or JVD CHEST: Clear to auscultation. No respiratory distress. No wheezes rales or rhonchi HEART: Regular rate and rhythm. No murmur heard. Normal peripheral pulses. ABDOMEN: Soft, nondistended, normal active bowel sounds. Mild tenderness to palpation of the epigastrium, without guarding. No CVA tenderness EXTREMITIES: Normal range of motion. No edema. SKIN: Warm, dry, no rash. NEURO: No focal deficits. Alert and oriented x3. PSYCH: Normal mood and affect Course Course Emergency Course: Patient and family updated on work-up and plan of care Consultations Consultation #1: Spoke with Dr. Gama about patient and workup. Recommends reassuring patient there is nothing concerning on work-up. Discharge with Bentyl and
[2022-11-03] MEDS: ONDANSETRON INJ 4 MG/2 ML VIAL IV PUSH (18:29)
[2022-11-03] MEDS: SODIUM CHLORIDE 0.9% IV 1,000 ML 999 ML IV CONT (18:29)
[2022-11-03] MEDS: MORPHINE SULFATE (*CRX) 4 MG/ML INJ IV PUSH (18:30)
[2022-11-03] MEDS: FAMOTIDINE 20 MG/2 ML VIAL IV PUSH (18:30)
[2022-11-03] MEDS: MORPHINE SULFATE (*CRX) 2 MG/ML INJ IV PUSH (20:08)
[2022-11-03] MEDS: PANTOPRAZOLE SODIUM IV 40 MG VIAL IV PUSH (20:08)
[2022-11-03] MEDS: DICYCLOMINE HCL INJ 20 MG/2 ML VIAL IM (20:21)
[2022-11-03 21:53] VITALS: BP 137/90; PULSE 70; RESP 18; O2SAT 100
== END 2022-11-03 22:09 | disposition home or self-care (01) ==
PROVIDERS: Emergency Medicine; Emergency Provider Physician Assistant
DX: K20.90 Esophagitis, unspecified without bleeding (principal); K21.9 Gastro-esophageal reflux disease without esophagitis; I10 Essential (primary) hypertension; K76.0 Fatty (change of) liver, not elsewhere classified; K29.70 Gastritis, unspecified, without bleeding
CPT/HCPCS: 36415; 74177; 80053; 81001; 83690; 85025; 87086; 96365; 96372; 96375; 96376; 99284; C9113; J0131; J0456; J0500; J2270; J2405; J7030; Q9967